=== PATIENT | male | born 1980 | race Caucasian/White ===

== ENCOUNTER 2023-10-15 20:37 | Inpatient (IN) ==
--- NOTE | 2023-10-15 20:51 | Emergency Department Note ---
Impression & Plan Sepsis, Hypomagnesemia, Hypophosphatemia, Hypokalemia, Hypoalbuminemia due to protein-calorie malnutrition, Acute urinary retention, Acute UTI ED Provider Note NAME: VELVET SMITH AGE: 43 SEX: M : 1980 ARRIVES VIA: Ambulance INFORMANT: Patient ED PROVIDER(S): Norberto Cage MD CHIEF COMPLAINT: AMS, fever PLAN: Disposition: Admit MEDICAL DECISION MAKING: The patient is a 43-year-old gentleman presents to the emergency department via EMS and accompanied by his father and a family friend for evaluation of altered mental status where he was found to be febrile and incoherent with inability to ambulate. The patient's symptoms occur in the setting of unclear functional decline over the past year where his father reports that he used to live in [place] independently and had a job at a [employer] but due to his decline moved back home to live with his father last November where he has a pattern where he will sleep and lay in bed all day only periodically getting up to use the bathroom, bathe himself or eat. The patient's father correlates this functional decline to his 's (malini's mother) the year prior. Father reports that he is insisted to the patient that he see a doctor but had declined regularly and so therefore since moving back home in November has not seen a primary care doctor. His father reports that he has had imbalance and recurrent falls throughout this time. His father reports that he found the patient outside today after he had not returned from a walk and found him to be confused unable to speak and unable to walk steadily. Patient's father reports that he was getting up frequently last night to urinate. There is no report of any cough or congestion. The patient is a poor historian and unable to provide significant details of his recent symptoms or history. Patient's father also does not provide accurate details of chronicity, duration or character of symptoms. The patient and father deny any history of alcohol or substance abuse. On arrival to the Emergency Department patient is ill-appearing, febrile to 38.4, tachycardic in the 120s initially normotensive however then developed hypotension in the 80s/40s improving with IV fluid hydration. The patient appears clinically dry. He has dry/cracked mucous membranes. He appears cachectic. He moves all extremities equally with generalized weakness without focal deficits. Reflexes within normal limits. There is no clonus. Negative Kernig's and Brudzinski's sign and the patient reports that this movement provides some relief. WBC 11.1 K with neutrophil predominance but no left shift, nonspecific. Significant lymphopenia is present at 0.27K. H/H without prior for comparison with MCV of 97. Chemistry without metabolic acidosis. Creatinine is normal. Potassium is 3.4, phosphorus 1.4 and magnesium 1.3 with repletion initiated. LFTs are unremarkable. Has to troponin is 5.5, within normal limits. Albumin is low at 2.9 consistent with suspicion for protein calorie malnutrition in the setting of the patient's functional decline over the past year. Procalcitonin is 3.4 consistent with bacterial infection and sepsis. Given patient's lymphopenia and likely exposure to ticks as his [place] treatment empirically for anaplasmosis was initiated with IV doxycycline. Otherwise empiric ceftriaxone ordered for sepsis. Respiratory BioFire was performed and was negative. Anaplasma and Babesia smear were negative with DNA testing pending. Lyme screen is negative. Given patient's critical illness with unreliable history and exam extensive CT imaging obtained. Case was discussed with Dr. Aggarwal, [facility] hospitalist who will evaluate the patient for admission. Subsequently CT imaging interpreted by stat rad. CT of the head without contrast and CT venogram were negative for acute abnormalities and was discussed/confirmed with [facility] radiologist. CT of the face negative for dental infection/abscess or sinusitis. CTA of the chest was negative for PE. Subtle OSMIN groundglass opacities described. CT of the abdomen/pelvis demonstrates distended urinary bladder with circumferential wall thickening and subtle associated inflammatory change consistent with cystitis. There is no hydronephrosis. Upon evaluation the patient was reporting urgency to urinate but was unable and so Hernández catheter was placed and patient had retention of 650 cc of urine. UA subsequently did result and was positive for infection with WBCs, 4+ bacteria and positive nitrites. Admitting team updated. Further management per admitting team. Triage Nursing notes reviewed and agree them. Prior/external medical records reviewed Vital Signs: reviewed Differential diagnosis: Sepsis, UTI, pneumonia, metabolic, electrolyte abnormalities, cardiac sources, intracerebral event, toxicologic, neurologic, as well as other pathologies. ER treatment provided: See below. Diagnostics interpreted by me: ECG: Sinus tachycardia, 116 bpm, no ectopy, no overt ST ovation or depression, QTc 433, QRS 86. Cardiac Monitoring: An order for continuous cardiac monitoring was placed and demonstrated Sinus tachycardia, 116 bpm, no ectopy. Laboratory studies: See below Imaging studies: See below Consultation(s): Case was discussed with Dr. Aggarwal, [facility] hospitalist who will evaluate the patient for admission. HPI: The patient is a 43-year-old gentleman presents to the emergency department via EMS and accompanied by his father and a family friend for evaluation of altered mental status where he was found to be febrile and incoherent with inability to ambulate. The patient's symptoms occur in the setting of unclear functional decline over the past year where his father reports that he used to live in [place] independently and had a job at a [employer] but due to his decline moved back home to live with his father last November where he has a pattern where he will sleep and lay in bed all day only periodically getting up to use the bathroom, bathe himself or eat. The patient's father correlates this functional decline to his 's (pateint's mother) the year prior. Father reports that he is insisted to the patient that he see a doctor but had declined regularly and so therefore since moving back home in November has not seen a primary care doctor. His father reports that he has had imbalance and recurrent falls throughout this time. His father reports that he found the patient outside today after he had not returned from a walk and found him to be confused unable to speak and unable to walk steadily. Patient's father reports that he was getting up frequently last night to urinate. There is no report of any cough or congestion. The patient is a poor historian and unable to provide significant details of his recent symptoms or history. Patient's father also does not provide accurate details of chronicity, duration or character of symptoms. The patient and father deny any history of alcohol or substance abuse. ROS: See above HPI for pertinent positives & negatives. A total of 10 systems reviewed and were otherwise negative. VITALS:See Below PHYSICAL EXAMINATION: GENERAL: Awake, alert, ill-appearing, in no distress HENT: Normocephalic, atraumatic. Oropharynx with dry mucous membranes. Poor dentition. No edema, exudates, tongue elevation or trismus. EYES: Normal conjunctiva. Sclera non-icteric. EOMI. PEARRL. Equivocal bilateral horizontal nystagmus. NECK: Supple. No nuchal rigidity. FROM. No JVD. RESPIRATORY: Clear to auscultation. CARDIAC: Tachycardic rate, normal rhythm. Extremities warm and well perfused. Pulses equal. ABDOMEN: Soft, non-distended. No tenderness to palpation. No rebound or guarding. No masses. MUSCULOSKELETAL: Chest examination reveals no tenderness. The back is symmetrical on inspection without obvious abnormality. There is no CVA tenderness to palpation. No joint edema. LOWER EXTREMITIES: Calves are equal size bilaterally and non-tender. No edema. No discoloration. NEURO: Answers questions appropriately without dysarthria. Appears withdrawn and exhibits poverty of speech. Melancholy appearing. Flat affect. CNII-XII grossly intact. Generalized weakness with 4/5 strength x 4 Ext. Intact finger to nose. DTRs wnl. No clonus. SKIN: No rash or jaundice noted. ED COURSE: Critical Care: I have personally spent greater than 95 minutes of critical care time in the direct management of this patient. This includes bedside care, interpretation of diagnostic studies, and testing, discussion with consultants, patient, and family members, and other required patient management activities. This 95 minutes is in excess of all separately billable procedures. Norberto Cage MD Past Med/Surg History Problem List Acute UTI (Acute) Acute urinary retention (Acute) Hypoalbuminemia due to protein-calorie malnutrition (Acute) Hypokalemia (Acute) Hypophosphatemia (Acute) Hypomagnesemia (Acute) Sepsis (Acute) Social History Smoking Status: Current every day smoker Feels Safe at Home: Yes Allergies Allergies Allergy/AdvReac Type Severity Reaction Status Date / Time No Known Allergies Allergy Unverified 10/16/23 00:27 Home Meds Home Medications Medication Instructions Recorded Confirmed Elderberry Gummy 2 tabs PO DAILY 10/16/23 10/16/23 acetaminophen 500 mg tablet 1,000 mg PO Q6H PRN Fever Or Pain 10/16/23 10/16/23 (Tylenol Extra Strength) milk thistle 150 mg capsule 0 mg PO DAILY 10/16/23 10/16/23 Results & Data (ED) Vital Signs Vital Signs - 24 hr 10/15/23 20:43 10/15/23 20:44 10/15/23 20:46 Temperature Temperature Source Pulse Rate 114 H 117 H Pulse Rate [Apical] Pulse Rate from SpO2 Sensor Pulse Rhythm [Apical] Respiratory Rate 21 Respiratory Effort / Characteristics Respiratory Depth Blood Pressure 116/68 116/68 Blood Pressure [Right Arm] Blood Pressure Mean 84 77 Blood Pressure Mean [Right Arm] Pulse Oximetry 95 Oxygen Delivery Method Room Air Sepsis Recent Fever Within 48 Hours Yes Sepsis New/Unexplained Change in Mental Status Yes Sepsis Action Taken by Nursing Physician Notified 10/15/23 20:46 10/15/23 20:48 10/15/23 20:49 Temperature Temperature Source Pulse Rate 110 H Pulse Rate [Apical] Pulse Rate from SpO2 Sensor 110 H Pulse Rhythm [Apical] Respiratory Rate 26 H Respiratory Effort / Characteristics Respiratory Depth Blood Pressure 116/68 Blood Pressure [Right Arm] Blood Pressure Mean 77 Blood Pressure Mean [Right Arm] Pulse Oximetry 94 Oxygen Delivery Method Room Air Sepsis Recent Fever Within 48 Hours Sepsis New/Unexplained Change in Mental Status Sepsis Action Taken by Nursing 10/15/23 20:49 10/15/23 20:55 10/15/23 20:57 Temperature Temperature Source Pulse Rate 112 H Pulse Rate [Apical] 112 H Pulse Rate from SpO2 Sensor 112 H Pulse Rhythm [Apical] Respiratory Rate 28 H 26 H Respiratory Effort / Characteristics Respiratory Depth Blood Pressure Blood Pressure [Right Arm] 116/68 Blood Pressure Mean Blood Pressure Mean [Right Arm] 84 Pulse Oximetry 95 94 95 Oxygen Delivery Method Room Air Room Air Sepsis Recent Fever Within 48 Hours Sepsis New/Unexplained Change in Mental Status Sepsis Action Taken by Nursing 10/15/23 21:00 10/15/23 21:06 10/15/23 21:27 Temperature Temperature Source Pulse Rate 107 H 105 H Pulse Rate [Apical] Pulse Rate from SpO2 Sensor 108 H 105 H Pulse Rhythm [Apical] Respiratory Rate 24 22 Respiratory Effort / Characteristics Respiratory Depth Blood Pressure 113/68 Blood Pressure [Right Arm] Blood Pressure Mean 78 Blood Pressure Mean [Right Arm] Pulse Oximetry 94 96 Oxygen Delivery Method Sepsis Recent Fever Within 48 Hours Sepsis New/Unexplained Change in Mental Status Sepsis Action Taken by Nursing 10/15/23 21:30 10/15/23 21:33 10/15/23 21:39 Temperature Temperature Source Pulse Rate 103 H 100 H Pulse Rate [Apical] Pulse Rate from SpO2 Sensor 103 H 100 H Pulse Rhythm [Apical] Respiratory Rate 26 H 24 Respiratory Effort / Characteristics Respiratory Depth Blood Pressure 96/54 L Blood Pressure [Right Arm] Blood Pressure Mean 62 Blood Pressure Mean [Right Arm] Pulse Oximetry 95 95 Oxygen Delivery Method Sepsis Recent Fever Within 48 Hours Sepsis New/Unexplained Change in Mental Status Sepsis Action Taken by Nursing 10/15/23 21:44 10/15/23 21:46 10/15/23 21:48 Temperature 38.4 C H Temperature Source Oral Pulse Rate Pulse Rate [Apical] 103 H Pulse Rate from SpO2 Sensor Pulse Rhythm [Apical] Respiratory Rate 22 Respiratory Effort / Characteristics Respiratory Depth Blood Pressure 85/69 L 88/48 L Blood Pressure [Right Arm] 88/48 L Blood Pressure Mean 71 58 Blood Pressure Mean [Right Arm] 61 Pulse Oximetry 97 Oxygen Delivery Method Room Air Sepsis Recent Fever Within 48 Hours Sepsis New/Unexplained Change in Mental Status Sepsis Action Taken by Nursing 10/15/23 21:48 10/15/23 22:01 10/15/23 22:01 Temperature Temperature Source Pulse Rate 101 H Pulse Rate [Apical] Pulse Rate from SpO2 Sensor 102 H Pulse Rhythm [Apical] Respiratory Rate 21 Respiratory Effort / Characteristics Respiratory Depth Blood Pressure 86/44 L 86/44 L Blood Pressure [Right Arm] Blood Pressure Mean 56 56 Blood Pressure Mean [Right Arm] Pulse Oximetry 96 Oxygen Delivery Method Sepsis Recent Fever Within 48 Hours Sepsis New/Unexplained Change in Mental Status Sepsis Action Taken by Nursing 10/15/23 22:01 10/15/23 22:03 10/15/23 22:16 Temperature Temperature Source Pulse Rate 100 H Pulse Rate [Apical] Pulse Rate from SpO2 Sensor 100 H Pulse Rhythm [Apical] Respiratory Rate 19 Respiratory Effort / Characteristics Respiratory Depth Blood Pressure 86/44 L 82/46 L Blood Pressure [Right Arm] Blood Pressure Mean 56 53 Blood Pressure Mean [Right Arm] Pulse Oximetry 97 Oxygen Delivery Method Sepsis Recent Fever Within 48 Hours Sepsis New/Unexplained Change in Mental Status Sepsis Action Taken by Nursing 10/15/23 22:16 10/15/23 22:30 10/15/23 22:33 Temperature Temperature Source Pulse Rate 97 H Pulse Rate [Apical] Pulse Rate from SpO2 Sensor 97 H Pulse Rhythm [Apical] Respiratory Rate 21 Respiratory Effort / Characteristics Respiratory Depth Blood Pressure 82/46 L 81/47 L Blood Pressure [Right Arm] Blood Pressure Mean 53 51 Blood Pressure Mean [Right Arm] Pulse Oximetry 96 Oxygen Delivery Method Sepsis Recent Fever Within 48 Hours Sepsis New/Unexplained Change in Mental Status Sepsis Action Taken by Nursing 10/15/23 22:39 10/15/23 22:45 10/15/23 22:45 Temperature Temperature Source Pulse Rate 96 H Pulse Rate [Apical] Pulse Rate from SpO2 Sensor 97 H Pulse Rhythm [Apical] Respiratory Rate 21 Respiratory Effort / Characteristics Respiratory Depth Blood Pressure 81/50 L 81/50 L Blood Pressure [Right Arm] Blood Pressure Mean 66 66 Blood Pressure Mean [Right Arm] Pulse Oximetry 96 Oxygen Delivery Method Sepsis Recent Fever Within 48 Hours Sepsis New/Unexplained Change in Mental Status Sepsis Action Taken by Nursing 10/15/23 22:48 10/15/23 23:00 10/15/23 23:36 Temperature Temperature Source Pulse Rate 94 H Pulse Rate [Apical] 94 H Pulse Rate from SpO2 Sensor 94 H Pulse Rhythm [Apical] Regular Respiratory Rate 22 21 Respiratory Effort / Characteristics Non-Labored Respiratory Depth Normal Blood Pressure 86/50 L Blood Pressure [Right Arm] 81/50 L Blood Pressure Mean 63 Blood Pressure Mean [Right Arm] 60 Pulse Oximetry 95 98 Oxygen Delivery Method Room Air Sepsis Recent Fever Within 48 Hours Sepsis New/Unexplained Change in Mental Status Sepsis Action Taken by Nursing 10/16/23 00:08 10/16/23 01:03 Temperature 37.4 C Temperature Source Oral Pulse Rate 88 Pulse Rate [Apical] 101 H Pulse Rate from SpO2 Sensor Pulse Rhythm [Apical] Respiratory Rate 25 H Respiratory Effort / Characteristics Non-Labored Spontaneous Respiratory Depth Normal Blood Pressure Blood Pressure [Right Arm] 89/57 L Blood Pressure Mean Blood Pressure Mean [Right Arm] 67 Pulse Oximetry 98 Oxygen Delivery Method Room Air Sepsis Recent Fever Within 48 Hours Sepsis New/Unexplained Change in Mental Status Sepsis Action Taken by Nursing Laboratory Data Attestation: I reviewed the patient's lab results. 10/15/23 20:55 10/15/23 20:55 Lab Results 10/15/23 10/15/23 10/16/23 Range/Units 20:55 23:45 00:10 WBC 11.10 H (4.8-10.8) K/ul RBC 3.39 L (4.70-6.10) M/uL Hgb 11.0 L (14.0-18.0) g/dl Hct 33.0 L (42.0-52.0) % MCV 97.3 (80.0-100.0) fL MCH 32.4 (25.0-34.0) pg MCHC 33.3 (32.0-36.0) g/dL RDW Std Deviation 42.8 (36.4-46.3) fL RDW Coeff of Luis 11.9 (11.5-14.5) % Plt Count 139 (130-400) K/uL MPV 10.0 (9.4-12.4) fL Immature Gran % (Auto) 0.7 % Neut % (Auto) 95.5 % Lymph % (Auto) 2.4 % Tripp % (Auto) 1.0 % Eos % (Auto) 0.3 % Baso % (Auto) 0.1 % Neut # (Auto) 10.60 H (1.40-6.50) K/uL Lymph # (Auto) 0.27 L (1.20-3.40) K/uL Tripp # (Auto) 0.11 (0.11-0.59) K/uL Eos # (Auto) 0.03 (0.00-0.50) K/uL Baso # (Auto) 0.01 (0.00-0.20) K/uL Immature Gran # (Auto) 0.08 (0.01-0.20) K/uL Sodium 136 (136-145) mmol/L Potassium 3.4 L (3.5-5.1) mmol/L Chloride 105 (98-107) mmol/L Carbon Dioxide 23 (21-32) mmol/L Anion Gap 8 (3-11) BUN 16 (6-23) mg/dl Creatinine 0.92 (0.6-1.4) mg/dl Est Cr Clr Drug Dosing 113.9 ml/min Est GFR ( Amer) 117.6 ml/min Est GFR (Non-Af Amer) 101.5 ml/min BUN/Creatinine Ratio 17.4 (10-20) Glucose 104 H (70-99(Fasting)) mg/dl Osmolality 285 (280-300) mOsm/kg Lactate 1.2 (0.4-2.0) mmol/L Calcium 8.3 L (8.6-10.3) mg/dl Phosphorus 1.4 L* (2.5-4.9) mg/dl Magnesium 1.3 L (1.7-2.4) mg/dl Total Bilirubin 0.5 (0.2-1.0) mg/dl Direct Bilirubin 0.2 (0-0.2) mg/dl AST 23 (13-39) U/L ALT 35 (7-52) U/L Alkaline Phosphatase 53 (34-104) U/L Total Creatine Kinase 51 (30-223) U/L Troponin I High Sens 5.5 (0-20) pg/ml Total Protein 8.0 (6.0-8.3) gm/dl Albumin 2.9 L (3.4-5.0) gm/dl Lipase 20 (11-82) U/L Procalcitonin 3.45 H (0-0.5) ng/ml Urine Color Urine Appearance (Clear) Urine pH (4.5-7.5) Ur Specific [place] (1.000-1.030) Urine Protein (Negative) Urine Glucose (UA) (Negative) Urine Ketones (Negative) Urine Blood (Negative) Urine Nitrite (Negative) Urine Bilirubin (Negative) Urine Urobilinogen (Negative) Ur Leukocyte Esterase (Negative) Urine WBC (Auto) (0-5) /hpf Urine RBC (Auto) (0-2) /hpf U Hyaline Cast (Auto) (0-2) /lpf U Epithel Cells (Auto) (0-2) /hpf Urine Bacteria (Auto) (None Seen) Nasal Screen MRSA (PCR) Negative (Negative) Adenovirus (PCR) Not Detected (NotDetected) Anaplasma Smear See Comment Babesia Smear See Comment B. pertussis DNA (PCR) Not Detected (NotDetected) B.parapertussis DNA PCR Not Detected (NotDetected) Lyme Disease Screen Negative (Negative) C. pneumoniae DNA (PCR) Not Detected (NotDetected) Coronavirus OC43 (PCR) Not Detected (NotDetected) Coronavirus HKU1 (PCR) Not Detected (NotDetected) Coronavirus 229E (PCR) Not Detected (NotDetected) SARS-CoV-2 (PCR) Not Detected (NotDetected) Coronavirus NL63 (PCR) Not Detected (NotDetected) Human Metapneumovir PCR Not Detected (NotDetected) Influenza Type A (PCR) Not Detected (NotDetected) Influenza Type B (PCR) Not Detected (NotDetected) M. pneumoniae (PCR) Not Detected (NotDetected) Parainfluenza 1 (PCR) Not Detected (NotDetected) Parainfluenza 2 (PCR) Not Detected (NotDetected) Parainfluenza 3 (PCR) Not Detected (NotDetected) Parainfluenza 4 (PCR) Not Detected (NotDetected) RSV (PCR) Not Detected (NotDetected) Entero/Rhino (PCR) Not Detected (NotDetected) 10/16/23 Range/Units 00:57 WBC (4.8-10.8) K/ul RBC (4.70-6.10) M/uL Hgb (14.0-18.0) g/dl Hct (42.0-52.0) % MCV (80.0-100.0) fL MCH (25.0-34.0) pg MCHC (32.0-36.0) g/dL RDW Std Deviation (36.4-46.3) fL RDW Coeff of Luis (11.5-14.5) % Plt Count (130-400) K/uL MPV (9.4-12.4) fL Immature Gran % (Auto) % Neut % (Auto) % Lymph % (Auto) % Tripp % (Auto) % Eos % (Auto) % Baso % (Auto) % Neut # (Auto) (1.40-6.50) K/uL Lymph # (Auto) (1.20-3.40) K/uL Tripp # (Auto) (0.11-0.59) K/uL Eos # (Auto) (0.00-0.50) K/uL Baso # (Auto) (0.00-0.20) K/uL Immature Gran # (Auto) (0.01-0.20) K/uL Sodium (136-145) mmol/L Potassium (3.5-5.1) mmol/L Chloride (98-107) mmol/L Carbon Dioxide (21-32) mmol/L Anion Gap (3-11) BUN (6-23) mg/dl Creatinine (0.6-1.4) mg/dl Est Cr Clr Drug Dosing ml/min Est GFR ( Amer) ml/min Est GFR (Non-Af Amer) ml/min BUN/Creatinine Ratio (10-20) Glucose (70-99(Fasting)) mg/dl Osmolality (280-300) mOsm/kg Lactate (0.4-2.0) mmol/L Calcium (8.6-10.3) mg/dl Phosphorus (2.5-4.9) mg/dl Magnesium (1.7-2.4) mg/dl Total Bilirubin (0.2-1.0) mg/dl Direct Bilirubin (0-0.2) mg/dl AST (13-39) U/L ALT (7-52) U/L Alkaline Phosphatase (34-104) U/L Total Creatine Kinase (30-223) U/L Troponin I High Sens (0-20) pg/ml Total Protein (6.0-8.3) gm/dl Albumin (3.4-5.0) gm/dl Lipase (11-82) U/L Procalcitonin (0-0.5) ng/ml Urine Color Yellow Urine Appearance Cloudy A (Clear) Urine pH 7.5 (4.5-7.5) Ur Specific [place] 1.021 (1.000-1.030) Urine Protein 1+ H (Negative) Urine Glucose (UA) Negative (Negative) Urine Ketones Negative (Negative) Urine Blood 2+ H (Negative) Urine Nitrite Positive A (Negative) Urine Bilirubin Negative (Negative) Urine Urobilinogen Negative (Negative) Ur Leukocyte Esterase 3+ H (Negative) Urine WBC (Auto) >50 H (0-5) /hpf Urine RBC (Auto) 11-20 H (0-2) /hpf U Hyaline Cast (Auto) 0-2 (0-2) /lpf U Epithel Cells (Auto) 0-2 (0-2) /hpf Urine Bacteria (Auto) 4+ H (None Seen) Nasal Screen MRSA (PCR) (Negative) Adenovirus (PCR) (NotDetected) Anaplasma Smear Babesia Smear B. pertussis DNA (PCR) (NotDetected) B.parapertussis DNA PCR (NotDetected) Lyme Disease Screen (Negative) C. pneumoniae DNA (PCR) (NotDetected) Coronavirus OC43 (PCR) (NotDetected) Coronavirus HKU1 (PCR) (NotDetected) Coronavirus 229E (PCR) (NotDetected) SARS-CoV-2 (PCR) (NotDetected) Coronavirus NL63 (PCR) (NotDetected) Human Metapneumovir PCR (NotDetected) Influenza Type A (PCR) (NotDetected) Influenza Type B (PCR) (NotDetected) M. pneumoniae (PCR) (NotDetected) Parainfluenza 1 (PCR) (NotDetected) Parainfluenza 2 (PCR) (NotDetected) Parainfluenza 3 (PCR) (NotDetected) Parainfluenza 4 (PCR) (NotDetected) RSV (PCR) (NotDetected) Entero/Rhino (PCR) (NotDetected) Administered Medications Potassium Phosphate 15 mmol/ (Sodium Chloride) 255 mls @ 88 mls/hr IV ONE STA Stop: 10/16/23 02:58 Last Admin: 10/16/23 00:50 Dose: 88 mls/hr Documented By: ROSANNA Magnesium Sulfate/Dextrose (Magnesium Sulfate / D5w) 1 gm in 100 mls @ 50 mls/hr IV ONE STA Stop: 10/16/23 03:11 Last Admin: 10/16/23 01:39 Dose: 50 mls/hr Documented By: ROSANNA Discontinued Medications Acetaminophen (Ofirmev) 1,000 mg in 100 mls @ 400 mls/hr IV NOW STA Stop: 10/15/23 21:03 Last Infusion: 10/15/23 21:16 Dose: Infused Documented By: Admin: 10/15/23 21:00 Dose: 400 mls/hr Documented By: ROSANNA Sodium Chloride (Nss) 1,000 mls @ 999 mls/hr IV .Q1H1M JEREL Stop: 10/15/23 23:00 Last Infusion: 10/15/23 22:39 Dose: Infused Documented By: Admin: 10/15/23 21:32 Dose: 999 mls/hr Documented By: Infusion: 10/15/23 21:32 Dose: Infused Documented By: Admin: 10/15/23 21:00 Dose: 999 mls/hr Documented By: ROSANNA Ceftriaxone Sodium (Rocephin) 2,000 mg in 50 mls @ 100 mls/hr IV NOW STA Stop: 10/15/23 22:52 Last Infusion: 10/15/23 23:03 Dose: Infused Documented By: Admin: 10/15/23 22:33 Dose: 100 mls/hr Documented By: ROSANNA Magnesium Sulfate/Dextrose (Magnesium Sulfate / D5w) 1 gm in 100 mls @ 200 mls/hr IV Q30M JEREL Stop: 10/15/23 23:24 Last Infusion: 10/16/23 00:35 Dose: Infused Documented By: Admin: 10/15/23 23:54 Dose: 200 mls/hr Documented By: Infusion: 10/15/23 23:54 Dose: Infused Documented By: Admin: 10/15/23 23:16 Dose: 200 mls/hr Documented By: ROSANNA Sodium Chloride (Nss) 1,000 mls @ 999 mls/hr IV .Q1H1M ONE Stop: 10/15/23 23:27 Last Infusion: 10/16/23 00:07 Dose: Infused Documented By: Admin: 10/15/23 23:41 Dose: 999 mls/hr Documented By: ROSANNA Thiamine HCl 200 mg/ Sodium (Chloride) 52 mls @ 210 mls/hr IV NOW STA Stop: 10/15/23 22:41 Last Infusion: 10/15/23 23:41 Dose: Infused Documented By: Admin: 10/15/23 23:16 Dose: 210 mls/hr Documented By: ROSANNA Doxycycline Hyclate 100 mg/ (Dextrose) 100 mls @ 50 mls/hr IV NOW STA Stop: 10/16/23 01:36 Last Admin: 10/16/23 00:06 Dose: 50 mls/hr Documented By: ROSANNA Sodium Chloride (Nss) 1,000 mls @ 999 mls/hr IV .Q1H1M ONE Stop: 10/16/23 01:51 Last Admin: 10/16/23 01:02 Dose: Not Given Documented By: ROSANNA Lactated Ringer's (Lr) 1,000 mls @ 999 mls/hr IV .Q1H1M ONE Stop: 10/16/23 01:59 Last Infusion: 10/16/23 01:41 Dose: Infused Documented By: Admin: 10/16/23 01:07 Dose: 999 mls/hr Documented By: ROSANNA Ioversol (Optiray 320 125ml) 119 ml IV ONCE ONE Stop: 10/15/23 23:11 Last Admin: 10/15/23 23:10 Dose: 119 ml Documented By: TITO Potassium Chloride (Potassium Chloride Pwd 20 Meq Pack) 40 meq PO NOW STA Stop: 10/16/23 01:05 Last Admin: 10/16/23 01:38 Dose: 40 meq Documented By: ROSANNA Imaging Data Radiologist's Impression: Abdomen/Pelvis CT 10/15/23 22:25 Exam(s): CT ABDOMEN + PELVIS With Contrast IV Amt: 119 ml optiray 320 EXAM: CT Abdomen and Pelvis With Intravenous Contrast CLINICAL HISTORY: Reason for exam: sepsis, ?UTI. TECHNIQUE: Axial computed tomography images of the abdomen and pelvis with intravenous contrast. CTDI is 54.68 mGy and DLP is 2174.08 mGy-cm. Automated exposure control was utilized for the study. A dose lowering technique was utilized adhering to the principles of ALARA. CONTRAST: Patient received 119 ml optiray 320 of IV contrast COMPARISON: No relevant prior studies available. FINDINGS: Lung bases: Unremarkable. No mass. No consolidation. ABDOMEN: Liver: Hepatomegaly. Gallbladder and bile ducts: Unremarkable. No calcified stones. No ductal dilation. Pancreas: Unremarkable. No mass. No ductal dilation. Spleen: Unremarkable. No splenomegaly. Adrenals: Unremarkable. No mass. Kidneys and ureters: Nonobstructing left intrarenal calculus. Stomach and bowel: Large amount stool within the colon. No mucosal thickening. PELVIS: Appendix: No findings to suggest acute appendicitis. Bladder: Distended urinary bladder. Mild circumferential wall thickening and associated inflammatory change. Reproductive: Unremarkable as visualized. ABDOMEN and PELVIS: Intraperitoneal space: Unremarkable. No free air. No significant fluid collection. Bones/joints: Grade 1 anterolisthesis of L5 on S1. No acute fracture. No dislocation. Soft tissues: Unremarkable. Vasculature: Unremarkable. No abdominal aortic aneurysm. Lymph nodes: Unremarkable. No enlarged lymph nodes. IMPRESSION: Distended urinary bladder with mild circumferential wall thickening and subtle associated inflammatory change. Findings may represent cystitis in the appropriate clinical setting. Electronically signed by: Tiago Boston MD 10/16/23 00:35 AM Chest CTA 10/15/23 22:25 Exam(s): CTA CHEST IV Amt: 119 ml optiray 320 EXAM: CT Angiography Chest With Intravenous Contrast CLINICAL HISTORY: Reason for exam: tachycardia, hypoxia, r/o PE. TECHNIQUE: Axial computed tomographic angiography images of the chest with intravenous contrast. CTDI is 54.68 mGy and DLP is 2174.08 mGy-cm. Automated exposure control was utilized for the study. A dose lowering technique was utilized adhering to the principles of ALARA. MIP reconstructed images were created and reviewed. COMPARISON: No relevant prior studies available. FINDINGS: Limitations: Exam slightly limited secondary to patient respiratory motion. Pulmonary arteries: Unremarkable. No pulmonary embolism. Aorta: No acute findings. No thoracic aortic aneurysm. Lungs: Subtle groundglass opacity within the left upper lobe. Pleural space: Unremarkable. No significant effusion. No pneumothorax. Heart: Unremarkable. No cardiomegaly. No significant pericardial effusion. No evidence of RV dysfunction. Bones/joints: No acute fracture. No dislocation. Soft tissues: Unremarkable. Lymph nodes: Unremarkable. No enlarged lymph nodes. IMPRESSION: No acute findings in the visualized arteries of the chest. Left upper lobe pneumonia Electronically signed by: Tiago Boston MD 10/16/23 01:[address] 10/15/23 22:25 Exam(s): CT HEAD Without Contrast EXAM: CT Head Without Intravenous Contrast CLINICAL HISTORY: Reason for exam: ams fever. TECHNIQUE: Axial computed tomography images of the head/brain without intravenous contrast. CTDI is 35.79 mGy and DLP is 624.41 mGy-cm. Automated exposure control was utilized for the study. A dose lowering technique was utilized adhering to the principles of ALARA. COMPARISON: No relevant prior studies available. FINDINGS: Brain: Unremarkable. No hemorrhage. No significant white matter disease. No edema. Ventricles: Unremarkable. No ventriculomegaly. Bones/joints: Unremarkable. No acute fracture. Soft tissues: Unremarkable. Sinuses: Unremarkable as visualized. No acute sinusitis. Mastoid air cells: Unremarkable as visualized. No mastoid effusion. IMPRESSION: Normal head/brain CT. Electronically signed by: Tiago Boston MD 10/16/23 00:[address] 10/15/23 22:25 Exam(s): CT VENOGRAPHY IV Amt: 119 ml optiray 320 EXAM: CT Head With Intravenous Contrast CLINICAL HISTORY: Reason for exam: ams, fever. TECHNIQUE: Axial computed tomography images of the head/brain with intravenous contrast. CTDI is 35.79 mGy and DLP is 624.41 mGy-cm. Automated exposure control was utilized for the study. A dose lowering technique was utilized adhering to the principles of ALARA. CONTRAST: Patient received 119 ml optiray 320 of IV contrast COMPARISON: No relevant prior studies available. FINDINGS: Brain: Unremarkable. No hemorrhage. No edema. Normal enhancement. Ventricles: Unremarkable. No ventriculomegaly. Bones/joints: Unremarkable. No acute fracture. Soft tissues: Unremarkable. Sinuses: Unremarkable as visualized. No acute sinusitis. Mastoid air cells: Unremarkable as visualized. No mastoid effusion. Vascular structures: Unremarkable IMPRESSION: Normal head/brain CT. Electronically signed by: Tiago Boston MD 10/16/23 01:[address] 10/15/23 22:30 Exam(s): CT FACIAL With Contrast IV Amt: 119 ml optiray 320 EXAM: CT Maxillofacial With Intravenous Contrast CLINICAL HISTORY: Reason for exam: sepsis, dental caries. TECHNIQUE: Axial computed tomography images of the face with intravenous contrast. CTDI is 21.37 mGy and DLP is 10.69 mGy-cm. Automated exposure control was utilized for the study. A dose lowering technique was utilized adhering to the principles of ALARA. CONTRAST: Patient received 119 ml optiray 320 of IV contrast COMPARISON: No relevant prior studies available. FINDINGS: Bones/joints: No acute fracture. Soft tissues: Unremarkable. No rim-enhancing fluid collection to suggest abscess. Orbits: Unremarkable. Sinuses: . No air-fluid levels. IMPRESSION: Normal maxillofacial CT. Electronically signed by: Tiago Boston MD 10/16/23 01:40 AM Discharge Plan Visit Data Chief Complaint: Syncope Stated Complaint: Syncope, AMS ED Provider: Norberto Cage Discharge Problem: Sepsis, Hypomagnesemia, Hypophosphatemia, Hypokalemia, Hypoalbuminemia due to protein-calorie malnutrition, Acute urinary retention, Acute UTI Discharge Instructions Interventions: ED Discharge Assessment Last Done: 10/16/23 02:05 Discharge Problem: Sepsis Qualifiers: Sepsis type: sepsis due to unspecified organism Sepsis acute organ dysfunction status: with acute organ dysfunction Severe sepsis acute organ dysfunction type: encephalopathy Severe sepsis shock status: unspecified Qualified Code(s): A41.9 - Sepsis, unspecified organism
[2023-10-15] MEDS: ACETAMINOPHEN 1,000 MG/100 ML VIAL IV STA (21:00)
[2023-10-15] MEDS: SODIUM CHLORIDE 0.9% 1,000 ML IV SCH (21:00)
[2023-10-15 21:24] LABS: Mean Corpuscular Hemoglobin 32.4 pg (25.0-34.0); Mean Corpuscular Hgb Conc 33.3 g/dL (32.0-36.0); Mean Corpuscular Volume 97.3 fL (80.0-100.0); Platelet Count 139 K/uL (130-400); RDW Coefficient of Variation 11.9 % (11.5-14.5); RDW Standard Deviation 42.8 fL (36.4-46.3); Red Blood Count 3.39 M/uL (4.70-6.10)
[2023-10-15 21:38] LABS: Basophils # (auto) 0.01 K/uL (0.00-0.20); Basophils % (auto) 0.1 %; Eosinophils # (auto) 0.03 K/uL (0.00-0.50); Eosinophils % (auto) 0.3 %; Immature Granulocytes # (auto) 0.08 K/uL (0.01-0.20); Immature Granulocytes % (auto) 0.7 %; Lymphocytes # (auto) 0.27 K/uL (1.20-3.40); Lymphocytes % (auto) 2.4 %; Monocytes # (auto) 0.11 K/uL (0.11-0.59); Neutrophils % (auto) 95.5 %
[2023-10-15 21:43] LABS: Troponin I High Sensitivity 5.5 pg/ml (0-20)
[2023-10-15 21:56] LABS: Albumin Level 2.9 gm/dl (3.4-5.0); BUN Creatinine Ratio 17.4 (10-20); Bilirubin Direct 0.2 mg/dl (0-0.2); Bilirubin,Total 0.5 mg/dl (0.2-1.0); Calcium 8.3 mg/dl (8.6-10.3); Creatinine Clr Calc Pharmacy 113.9 ml/min; Est GFR (African American) 117.6 ml/min; Est GFR (Non-African American) 101.5 ml/min; Magnesium 1.3 mg/dl (1.7-2.4); Potassium 3.4 mmol/L (3.5-5.1)
[2023-10-15 22:07] LABS: Adenovirus PCR Not Detected (NotDetected); Bordetella parapertussis PCR Not Detected (NotDetected); Bordetella pertussis PCR Not Detected (NotDetected); Chlamydia pneumoniae PCR Not Detected (NotDetected); Coronavirus 229E PCR Not Detected (NotDetected); Coronavirus CoV-2 (COVID19)PCR Not Detected (NotDetected); Coronavirus HKU1 PCR Not Detected (NotDetected); Coronavirus NL63 PCR Not Detected (NotDetected); Coronavirus OC43PCR Not Detected (NotDetected); Human Metapneumovirus PCR Not Detected (NotDetected); Influenza A PCR Not Detected (NotDetected); Influenza B PCR Not Detected (NotDetected); Mycoplasma pneumoniae PCR Not Detected (NotDetected); Parainfluenza Virus 1 PCR Not Detected (NotDetected); Parainfluenza Virus 2 PCR Not Detected (NotDetected); Parainfluenza Virus 3 PCR Not Detected (NotDetected); Parainfluenza Virus 4 PCR Not Detected (NotDetected); Respiratory Syncytial VirusPCR Not Detected (NotDetected); Rhinovirus/Enterovirus PCR Not Detected (NotDetected)
[2023-10-15] MEDS: cefTRIAXone SODIUM 2,000 MG/50 ML BAG IV STA (22:33)
[2023-10-15 23:05] LABS: Phosphorus 1.4 mg/dl (2.5-4.9)
[2023-10-15] MEDS: OPTIRAY 320 125ml IV ONE (23:10)
[2023-10-15] MEDS: MAGNESIUM SULFATE / D5W 1 GM/100 ML BAG IV SCH (23:16)
[2023-10-15] MEDS: THIAMINE HCL 200 MG in SODIUM CHLORIDE 0.9% 50 ML IV STA (23:16)
[2023-10-15] MEDS ORDERED: POTASSIUM PHOS 3 MMOL/1 ML INFUSION IV STA (23:37)
[2023-10-15] MEDS: SODIUM CHLORIDE 0.9% 1,000 ML IV ONE (23:41)
[2023-10-16] MEDS: DOXYCYCLINE HYCLATE 100 MG in DEXTROSE 5% MINI-B 100 ML IV STA (00:06)
--- NOTE | 2023-10-16 00:15 | CT Scan Report ---
Exam(s): CT HEAD Without Contrast EXAM: CT Head Without Intravenous Contrast CLINICAL HISTORY: Reason for exam: ams fever. TECHNIQUE: Axial computed tomography images of the head/brain without intravenous contrast. CTDI is 35.79 mGy and DLP is 624.41 mGy-cm. Automated exposure control was utilized for the study. A dose lowering technique was utilized adhering to the principles of ALARA. COMPARISON: No relevant prior studies available. FINDINGS: Brain: Unremarkable. No hemorrhage. No significant white matter disease. No edema. Ventricles: Unremarkable. No ventriculomegaly. Bones/joints: Unremarkable. No acute fracture. Soft tissues: Unremarkable. Sinuses: Unremarkable as visualized. No acute sinusitis. Mastoid air cells: Unremarkable as visualized. No mastoid effusion. IMPRESSION: Normal head/brain CT. Electronically signed by: Tiago Boston MD 10/16/23 00:14 AM
--- NOTE | 2023-10-16 00:36 | CT Scan Report ---
Exam(s): CT ABDOMEN + PELVIS With Contrast IV Amt: 119 ml optiray 320 EXAM: CT Abdomen and Pelvis With Intravenous Contrast CLINICAL HISTORY: Reason for exam: sepsis, ?UTI. TECHNIQUE: Axial computed tomography images of the abdomen and pelvis with intravenous contrast. CTDI is 54.68 mGy and DLP is 2174.08 mGy-cm. Automated exposure control was utilized for the study. A dose lowering technique was utilized adhering to the principles of ALARA. CONTRAST: Patient received 119 ml optiray 320 of IV contrast COMPARISON: No relevant prior studies available. FINDINGS: Lung bases: Unremarkable. No mass. No consolidation. ABDOMEN: Liver: Hepatomegaly. Gallbladder and bile ducts: Unremarkable. No calcified stones. No ductal dilation. Pancreas: Unremarkable. No mass. No ductal dilation. Spleen: Unremarkable. No splenomegaly. Adrenals: Unremarkable. No mass. Kidneys and ureters: Nonobstructing left intrarenal calculus. Stomach and bowel: Large amount stool within the colon. No mucosal thickening. PELVIS: Appendix: No findings to suggest acute appendicitis. Bladder: Distended urinary bladder. Mild circumferential wall thickening and associated inflammatory change. Reproductive: Unremarkable as visualized. ABDOMEN and PELVIS: Intraperitoneal space: Unremarkable. No free air. No significant fluid collection. Bones/joints: Grade 1 anterolisthesis of L5 on S1. No acute fracture. No dislocation. Soft tissues: Unremarkable. Vasculature: Unremarkable. No abdominal aortic aneurysm. Lymph nodes: Unremarkable. No enlarged lymph nodes. IMPRESSION: Distended urinary bladder with mild circumferential wall thickening and subtle associated inflammatory change. Findings may represent cystitis in the appropriate clinical setting. Electronically signed by: Tiago Boston MD 10/16/23 00:35 AM
[2023-10-16] MEDS: POTASSIUM PHOSPHATE 15 MMOL in SODIUM CHLORIDE 0.9% 250 ML IV STA (00:50)
[2023-10-16] MEDS: SODIUM CHLORIDE 0.9% 1,000 ML IV ONE (01:02)
[2023-10-16] MEDS: LACTATED RINGER'S 1,000 ML IV ONE (01:07)
[2023-10-16 01:10] LABS: Appearance Urine Cloudy (Clear); Bacteria Urine Automated 4+ (None Seen); Bilirubin Urine Negative (Negative); Blood Urine 2+ (Negative); Cast Urine Automated 0-2 /lpf (0-2); Color Urine Yellow; Epithelial Cell Urine Auto 0-2 /hpf (0-2); Glucose Urine UA Negative (Negative); Ketones Urine Negative (Negative); Leukocyte Esterase Urine 3+ (Negative); Nitrite Urine Positive (Negative); Protein Urine 1+ (Negative); Specific Gravity Urine 1.021 (1.000-1.030); Urobilinogen Urine Negative (Negative); WBC Urine Automated >50 /hpf (0-5); pH Urine 7.5 (4.5-7.5)
--- NOTE | 2023-10-16 01:25 | CT Scan Report ---
Exam(s): CTA CHEST IV Amt: 119 ml optiray 320 EXAM: CT Angiography Chest With Intravenous Contrast CLINICAL HISTORY: Reason for exam: tachycardia, hypoxia, r/o PE. TECHNIQUE: Axial computed tomographic angiography images of the chest with intravenous contrast. CTDI is 54.68 mGy and DLP is 2174.08 mGy-cm. Automated exposure control was utilized for the study. A dose lowering technique was utilized adhering to the principles of ALARA. MIP reconstructed images were created and reviewed. COMPARISON: No relevant prior studies available. FINDINGS: Limitations: Exam slightly limited secondary to patient respiratory motion. Pulmonary arteries: Unremarkable. No pulmonary embolism. Aorta: No acute findings. No thoracic aortic aneurysm. Lungs: Subtle groundglass opacity within the left upper lobe. Pleural space: Unremarkable. No significant effusion. No pneumothorax. Heart: Unremarkable. No cardiomegaly. No significant pericardial effusion. No evidence of RV dysfunction. Bones/joints: No acute fracture. No dislocation. Soft tissues: Unremarkable. Lymph nodes: Unremarkable. No enlarged lymph nodes. IMPRESSION: No acute findings in the visualized arteries of the chest. Left upper lobe pneumonia Electronically signed by: Tiago Boston MD 10/16/23 01:24 AM
[2023-10-16] MEDS: POTASSIUM CHLORIDE PWD 20 MEQ PACK PO STA (01:38)
[2023-10-16] MEDS: MAGNESIUM SULFATE / D5W 1 GM/100 ML BAG IV STA (01:39)
--- NOTE | 2023-10-16 01:40 | CT Scan Report ---
Exam(s): CT FACIAL With Contrast IV Amt: 119 ml optiray 320 EXAM: CT Maxillofacial With Intravenous Contrast CLINICAL HISTORY: Reason for exam: sepsis, dental caries. TECHNIQUE: Axial computed tomography images of the face with intravenous contrast. CTDI is 21.37 mGy and DLP is 10.69 mGy-cm. Automated exposure control was utilized for the study. A dose lowering technique was utilized adhering to the principles of ALARA. CONTRAST: Patient received 119 ml optiray 320 of IV contrast COMPARISON: No relevant prior studies available. FINDINGS: Bones/joints: No acute fracture. Soft tissues: Unremarkable. No rim-enhancing fluid collection to suggest abscess. Orbits: Unremarkable. Sinuses: . No air-fluid levels. IMPRESSION: Normal maxillofacial CT. Electronically signed by: Tiago Boston MD 10/16/23 01:40 AM
--- NOTE | 2023-10-16 01:42 | CT Scan Report ---
Exam(s): CT VENOGRAPHY IV Amt: 119 ml optiray 320 EXAM: CT Head With Intravenous Contrast CLINICAL HISTORY: Reason for exam: ams, fever. TECHNIQUE: Axial computed tomography images of the head/brain with intravenous contrast. CTDI is 35.79 mGy and DLP is 624.41 mGy-cm. Automated exposure control was utilized for the study. A dose lowering technique was utilized adhering to the principles of ALARA. CONTRAST: Patient received 119 ml optiray 320 of IV contrast COMPARISON: No relevant prior studies available. FINDINGS: Brain: Unremarkable. No hemorrhage. No edema. Normal enhancement. Ventricles: Unremarkable. No ventriculomegaly. Bones/joints: Unremarkable. No acute fracture. Soft tissues: Unremarkable. Sinuses: Unremarkable as visualized. No acute sinusitis. Mastoid air cells: Unremarkable as visualized. No mastoid effusion. Vascular structures: Unremarkable IMPRESSION: Normal head/brain CT. Electronically signed by: Tiago Boston MD 10/16/23 01:42 AM
--- NOTE | 2023-10-16 01:46 | History & Physical Report ---
Date of Service October 16, 2023 Assessment & Plan (1) Hypotension: Plan: Secondary to hypovolemia secondary to sepsis from complicated UTI Encephalopathy secondary to illness, mentation much improved after initial intervention at the ER as per family. Hypokalemia, hypomagnesemia secondary to illness New onset anemia, intermittent hemorrhoidal bleed as per patient/family Ambulatory dysfunction since last year ongoing tobacco abuse PCU given hypotension IVF CS, Cefepime Replace electrolytes Anemia workup Nicotine replacement therapy as needed PT OT eval once medically stable DVT prophylaxis. SCDs RE intermittent hemorrhoidal bleed causing anemia Full code Patient father requesting updates providers. Mr. Avtar Ambrocio, contact #[phone]. Text document was generated using [employer] voice recognition software. It may contain grammatical or spelling errors. Kindly contact undersigned for clarification of any documentation item in question. History of Present Illness Chief Complaint: Confusion, weakness Primary Care Provider: Pierre Spain MD ([facility]) History obtained from patient, family, and records. History somewhat limited from patient secondary to confusion. Medical history significant for ongoing tobacco abuse. Patient moved back to [place] to reside with father from [place], [place] last December 2022 because of ambulation issues. Refused to seek consultation for walking issues as per father. Patient had a fall at home last week without head trauma. No unusual pain as per patient. No syncope. Patient noted to be increasingly weak and confused the last 3 days as per father. No EtOH intake as per father. Increased urinary frequency. Episodic hemorrhoidal bleed. Denies headache, cough, SOB symptoms. Transient chest pain from discomfort. Patient denies abdominal pain. Denies black/bloody stools. Patient not eating as much. Patient brought to ER for evaluation. Lowest SBP of 80s documented at the ER. IV ceftriaxone and doxycycline administered at the ER. 600 cc urine obtained post Hernández catheter insertion. Medical History as above Surgical History : None Family History : Heart disease Personal/Social history : 2 cigarettes a day, occasional EtOH intake, currently unemployed Allergies Allergy/AdvReac Type Severity Reaction Status Date / Time No Known Allergies Allergy Unverified 10/16/23 00:27 Home Medications Medication Instructions Recorded Confirmed Type Elderberry Gummy 2 tabs PO DAILY 10/16/23 10/16/23 History acetaminophen 500 mg tablet 1,000 mg PO Q6H PRN Fever Or Pain 10/16/23 10/16/23 History (Tylenol Extra Strength) milk thistle 150 mg capsule 0 mg PO DAILY 10/16/23 10/16/23 History Past Med/Surg History Problem List (Updated 10/16/23 @ 07:04 by Feliberto Aggarwal MD) Hypotension Acute UTI (Acute) Acute urinary retention (Acute) Hypoalbuminemia due to protein-calorie malnutrition (Acute) Hypokalemia (Acute) Hypophosphatemia (Acute) Hypomagnesemia (Acute) Sepsis (Acute) Social History Smoking Status: Current every day smoker Hx Alcohol Use: No Hx Substance Use: No Preferred Language: Telugu Communication Ability: Effective Social Problems Specialist Required: No Beliefs That Will Affect Care: None Current Living Situation: Family Other Information That Helps Us Care for You: No Feels Safe at Home: Yes Safety Concerns: Feels Safe At This Time Assistive Devices: None Review of Systems Review of Systems: Could not be reliably obtained secondary to disorientation Physical Exam Physical Exam: GENERAL: Oriented to place, slightly uncomfortable, no respiratory distress SKIN: Pallor, warm HEENT: Pale palpebral conjunctivae, no ptosis, dry buccal mucosa, poor dentition NECK : Supple, no tenderness CHEST : CTA, no tenderness HEART : RRR, no obvious murmurs ABDOMEN: Some distention, nontender EXTREMITIES : No LE swelling/tenderness, no other conspicuous deformities noted NEUROLOGIC : Oriented to place, no facial asymmetry, gait and stance not assessed Results & Data Results & Data Vital Signs (Past 12 Hours) Vital Signs Temp Pulse Pulse Resp BP BP Pulse Ox 10/16/23 01:03 88 10/16/23 00:08 37.4 C 101 H 25 H 89/57 L 98 10/15/23 23:36 86/50 L 10/15/23 23:00 94 H 21 81/50 L 98 10/15/23 22:48 94 H 22 95 10/15/23 22:45 81/50 L 10/15/23 22:45 81/50 L 10/15/23 22:39 96 H 21 96 10/15/23 22:33 97 H 21 96 10/15/23 22:30 81/47 L 10/15/23 22:16 82/46 L 10/15/23 22:16 82/46 L 10/15/23 22:03 100 H 19 97 10/15/23 22:01 86/44 L 10/15/23 22:01 86/44 L 10/15/23 22:01 86/44 L 10/15/23 21:48 101 H 21 96 10/15/23 21:48 38.4 C H 103 H 22 88/48 L 97 10/15/23 21:46 88/48 L 10/15/23 21:44 85/69 L 10/15/23 21:39 100 H 24 95 10/15/23 21:33 103 H 26 H 95 10/15/23 21:30 96/54 L 10/15/23 21:27 105 H 22 96 10/15/23 21:06 107 H 24 94 10/15/23 21:00 113/68 10/15/23 20:57 112 H 26 H 95 10/15/23 20:55 94 10/15/23 20:49 112 H 28 H 116/68 95 10/15/23 20:49 10/15/23 20:48 110 H 26 H 94 10/15/23 20:46 116/68 10/15/23 20:46 116/68 10/15/23 20:44 117 H 10/15/23 20:43 114 H 21 116/68 95 O2 Del Method 10/16/23 01:03 10/16/23 00:08 Room Air 10/15/23 23:36 10/15/23 23:00 Room Air 10/15/23 22:48 10/15/23 22:45 10/15/23 22:45 10/15/23 22:39 10/15/23 22:33 10/15/23 22:30 10/15/23 22:16 10/15/23 22:16 10/15/23 22:03 10/15/23 22:01 10/15/23 22:01 10/15/23 22:01 10/15/23 21:48 10/15/23 21:48 Room Air 10/15/23 21:46 10/15/23 21:44 10/15/23 21:39 10/15/23 21:33 10/15/23 21:30 10/15/23 21:27 10/15/23 21:06 10/15/23 21:00 10/15/23 20:57 10/15/23 20:55 Room Air 10/15/23 20:49 Room Air 10/15/23 20:49 Room Air 10/15/23 20:48 10/15/23 20:46 10/15/23 20:46 10/15/23 20:44 10/15/23 20:43 Room Air Laboratory Results Laboratory Results WBC 11.10 K/ul (4.8-10.8) H 10/15/23 20:55 RBC 3.39 M/uL (4.70-6.10) L 10/15/23 20:55 Hgb 11.0 g/dl (14.0-18.0) L 10/15/23 20:55 Hct 33.0 % (42.0-52.0) L 10/15/23 20:55 MCV 97.3 fL (80.0-100.0) 10/15/23 20:55 MCH 32.4 pg (25.0-34.0) 10/15/23 20:55 MCHC 33.3 g/dL (32.0-36.0) 10/15/23 20:55 RDW Std Deviation 42.8 fL (36.4-46.3) 10/15/23 20:55 RDW Coeff of Luis 11.9 % (11.5-14.5) 10/15/23 20:55 Plt Count 139 K/uL (130-400) 10/15/23 20:55 MPV 10.0 fL (9.4-12.4) 10/15/23 20:55 Immature Gran % (Auto) 0.7 % 10/15/23 20:55 Neut % (Auto) 95.5 % 10/15/23 20:55 Lymph % (Auto) 2.4 % 10/15/23 20:55 Johnston % (Auto) 1.0 % 10/15/23 20:55 Eos % (Auto) 0.3 % 10/15/23 20:55 Baso % (Auto) 0.1 % 10/15/23 20:55 Neut # (Auto) 10.60 K/uL (1.40-6.50) H 10/15/23 20:55 Lymph # (Auto) 0.27 K/uL (1.20-3.40) L 10/15/23 20:55 Johnston # (Auto) 0.11 K/uL (0.11-0.59) 10/15/23 20:55 Eos # (Auto) 0.03 K/uL (0.00-0.50) 10/15/23 20:55 Baso # (Auto) 0.01 K/uL (0.00-0.20) 10/15/23 20:55 Immature Gran # (Auto) 0.08 K/uL (0.01-0.20) 10/15/23 20:55 Sodium 136 mmol/L (136-145) 10/15/23 20:55 Potassium 3.4 mmol/L (3.5-5.1) L 10/15/23 20:55 Chloride 105 mmol/L (98-107) 10/15/23 20:55 Carbon Dioxide 23 mmol/L (21-32) 10/15/23 20:55 Anion Gap 8 (3-11) 10/15/23 20:55 BUN 16 mg/dl (6-23) 10/15/23 20:55 Creatinine 0.92 mg/dl (0.6-1.4) 10/15/23 20:55 Est Cr Clr Drug Dosing 113.9 ml/min 10/15/23 20:55 Est GFR ( Amer) 117.6 ml/min 10/15/23 20:55 Est GFR (Non-Af Amer) 101.5 ml/min 10/15/23 20:55 BUN/Creatinine Ratio 17.4 (10-20) 10/15/23 20:55 Glucose 104 mg/dl (70-99(Fasting)) H 10/15/23 20:55 Osmolality 285 mOsm/kg (280-300) 10/15/23 23:45 Lactate 1.2 mmol/L (0.4-2.0) 10/15/23 20:55 Calcium 8.3 mg/dl (8.6-10.3) L 10/15/23 20:55 Phosphorus 1.4 mg/dl (2.5-4.9) L* 10/15/23 20:55 Magnesium 1.3 mg/dl (1.7-2.4) L 10/15/23 20:55 Total Bilirubin 0.5 mg/dl (0.2-1.0) 10/15/23 20:55 Direct Bilirubin 0.2 mg/dl (0-0.2) 10/15/23 20:55 AST 23 U/L (13-39) 10/15/23 20:55 ALT 35 U/L (7-52) 10/15/23 20:55 Alkaline Phosphatase 53 U/L (34-104) 10/15/23 20:55 Total Creatine Kinase 51 U/L (30-223) 10/15/23 20:55 Troponin I High Sens 5.5 pg/ml (0-20) 10/15/23 20:55 Total Protein 8.0 gm/dl (6.0-8.3) 10/15/23 20:55 Albumin 2.9 gm/dl (3.4-5.0) L 10/15/23 20:55 Lipase 20 U/L (11-82) 10/15/23 20:55 Procalcitonin 3.45 ng/ml (0-0.5) H 10/15/23 20:55 Urine Color Yellow 10/16/23 00:57 Urine Appearance Cloudy (Clear) A 10/16/23 00:57 Urine pH 7.5 (4.5-7.5) 10/16/23 00:57 Ur Specific [place] 1.021 (1.000-1.030) 10/16/23 00:57 Urine Protein 1+ (Negative) H 10/16/23 00:57 Urine Glucose (UA) Negative (Negative) 10/16/23 00:57 Urine Ketones Negative (Negative) 10/16/23 00:57 Urine Blood 2+ (Negative) H 10/16/23 00:57 Urine Nitrite Positive (Negative) A 10/16/23 00:57 Urine Bilirubin Negative (Negative) 10/16/23 00:57 Urine Urobilinogen Negative (Negative) 10/16/23 00:57 Ur Leukocyte Esterase 3+ (Negative) H 10/16/23 00:57 Urine WBC (Auto) >50 /hpf (0-5) H 10/16/23 00:57 Urine RBC (Auto) 11-20 /hpf (0-2) H 10/16/23 00:57 U Hyaline Cast (Auto) 0-2 /lpf (0-2) 10/16/23 00:57 U Epithel Cells (Auto) 0-2 /hpf (0-2) 10/16/23 00:57 Urine Bacteria (Auto) 4+ (None Seen) H 10/16/23 00:57 Nasal Screen MRSA (PCR) Negative (Negative) 10/16/23 00:10 Adenovirus (PCR) Not Detected (NotDetected) 10/15/23 20:55 Anaplasma Smear See Comment 10/15/23 20:55 Babesia Smear See Comment 10/15/23 20:55 B. pertussis DNA (PCR) Not Detected (NotDetected) 10/15/23 20:55 B.parapertussis DNA PCR Not Detected (NotDetected) 10/15/23 20:55 Lyme Disease Screen Negative (Negative) 10/15/23 20:55 C. pneumoniae DNA (PCR) Not Detected (NotDetected) 10/15/23 20:55 Coronavirus OC43 (PCR) Not Detected (NotDetected) 10/15/23 20:55 Coronavirus HKU1 (PCR) Not Detected (NotDetected) 10/15/23 20:55 Coronavirus 229E (PCR) Not Detected (NotDetected) 10/15/23 20:55 SARS-CoV-2 (PCR) Not Detected (NotDetected) 10/15/23 20:55 Coronavirus NL63 (PCR) Not Detected (NotDetected) 10/15/23 20:55 Human Metapneumovir PCR Not Detected (NotDetected) 10/15/23 20:55 Influenza Type A (PCR) Not Detected (NotDetected) 10/15/23 20:55 Influenza Type B (PCR) Not Detected (NotDetected) 10/15/23 20:55 M. pneumoniae (PCR) Not Detected (NotDetected) 10/15/23 20:55 Parainfluenza 1 (PCR) Not Detected (NotDetected) 10/15/23 20:55 Parainfluenza 2 (PCR) Not Detected (NotDetected) 10/15/23 20:55 Parainfluenza 3 (PCR) Not Detected (NotDetected) 10/15/23 20:55 Parainfluenza 4 (PCR) Not Detected (NotDetected) 10/15/23 20:55 RSV (PCR) Not Detected (NotDetected) 10/15/23 20:55 Entero/Rhino (PCR) Not Detected (NotDetected) 10/15/23 20:55 Impressions Abdomen/Pelvis CT 10/15/23 22:25 Exam(s): CT ABDOMEN + PELVIS With Contrast IV Amt: 119 ml optiray 320 EXAM: CT Abdomen and Pelvis With Intravenous Contrast CLINICAL HISTORY: Reason for exam: sepsis, ?UTI. TECHNIQUE: Axial computed tomography images of the abdomen and pelvis with intravenous contrast. CTDI is 54.68 mGy and DLP is 2174.08 mGy-cm. Automated exposure control was utilized for the study. A dose lowering technique was utilized adhering to the principles of ALARA. CONTRAST: Patient received 119 ml optiray 320 of IV contrast COMPARISON: No relevant prior studies available. FINDINGS: Lung bases: Unremarkable. No mass. No consolidation. ABDOMEN: Liver: Hepatomegaly. Gallbladder and bile ducts: Unremarkable. No calcified stones. No ductal dilation. Pancreas: Unremarkable. No mass. No ductal dilation. Spleen: Unremarkable. No splenomegaly. Adrenals: Unremarkable. No mass. Kidneys and ureters: Nonobstructing left intrarenal calculus. Stomach and bowel: Large amount stool within the colon. No mucosal thickening. PELVIS: Appendix: No findings to suggest acute appendicitis. Bladder: Distended urinary bladder. Mild circumferential wall thickening and associated inflammatory change. Reproductive: Unremarkable as visualized. ABDOMEN and PELVIS: Intraperitoneal space: Unremarkable. No free air. No significant fluid collection. Bones/joints: Grade 1 anterolisthesis of L5 on S1. No acute fracture. No dislocation. Soft tissues: Unremarkable. Vasculature: Unremarkable. No abdominal aortic aneurysm. Lymph nodes: Unremarkable. No enlarged lymph nodes. IMPRESSION: Distended urinary bladder with mild circumferential wall thickening and subtle associated inflammatory change. Findings may represent cystitis in the appropriate clinical setting. Electronically signed by: Tiago Boston MD 10/16/23 00:35 AM Chest CTA 10/15/23 22:25 Exam(s): CTA CHEST IV Amt: 119 ml optiray 320 EXAM: CT Angiography Chest With Intravenous Contrast CLINICAL HISTORY: Reason for exam: tachycardia, hypoxia, r/o PE. TECHNIQUE: Axial computed tomographic angiography images of the chest with intravenous contrast. CTDI is 54.68 mGy and DLP is 2174.08 mGy-cm. Automated exposure control was utilized for the study. A dose lowering technique was utilized adhering to the principles of ALARA. MIP reconstructed images were created and reviewed. COMPARISON: No relevant prior studies available. FINDINGS: Limitations: Exam slightly limited secondary to patient respiratory motion. Pulmonary arteries: Unremarkable. No pulmonary embolism. Aorta: No acute findings. No thoracic aortic aneurysm. Lungs: Subtle groundglass opacity within the left upper lobe. Pleural space: Unremarkable. No significant effusion. No pneumothorax. Heart: Unremarkable. No cardiomegaly. No significant pericardial effusion. No evidence of RV dysfunction. Bones/joints: No acute fracture. No dislocation. Soft tissues: Unremarkable. Lymph nodes: Unremarkable. No enlarged lymph nodes. IMPRESSION: No acute findings in the visualized arteries of the chest. Left upper lobe pneumonia Electronically signed by: Tiago Boston MD 10/16/23 01:[address] 10/15/23 22:25 Exam(s): CT HEAD Without Contrast EXAM: CT Head Without Intravenous Contrast CLINICAL HISTORY: Reason for exam: ams fever. TECHNIQUE: Axial computed tomography images of the head/brain without intravenous contrast. CTDI is 35.79 mGy and DLP is 624.41 mGy-cm. Automated exposure control was utilized for the study. A dose lowering technique was utilized adhering to the principles of ALARA. COMPARISON: No relevant prior studies available. FINDINGS: Brain: Unremarkable. No hemorrhage. No significant white matter disease. No edema. Ventricles: Unremarkable. No ventriculomegaly. Bones/joints: Unremarkable. No acute fracture. Soft tissues: Unremarkable. Sinuses: Unremarkable as visualized. No acute sinusitis. Mastoid air cells: Unremarkable as visualized. No mastoid effusion. IMPRESSION: Normal head/brain CT. Electronically signed by: Tiago Boston MD 10/16/23 00:[address] 10/15/23 22:25 Exam(s): CT VENOGRAPHY IV Amt: 119 ml optiray 320 EXAM: CT Head With Intravenous Contrast CLINICAL HISTORY: Reason for exam: ams, fever. TECHNIQUE: Axial computed tomography images of the head/brain with intravenous contrast. CTDI is 35.79 mGy and DLP is 624.41 mGy-cm. Automated exposure control was utilized for the study. A dose lowering technique was utilized adhering to the principles of ALARA. CONTRAST: Patient received 119 ml optiray 320 of IV contrast COMPARISON: No relevant prior studies available. FINDINGS: Brain: Unremarkable. No hemorrhage. No edema. Normal enhancement. Ventricles: Unremarkable. No ventriculomegaly. Bones/joints: Unremarkable. No acute fracture. Soft tissues: Unremarkable. Sinuses: Unremarkable as visualized. No acute sinusitis. Mastoid air cells: Unremarkable as visualized. No mastoid effusion. Vascular structures: Unremarkable IMPRESSION: Normal head/brain CT. Electronically signed by: Tiago Boston MD 10/16/23 01:[address] 10/15/23 22:30 Exam(s): CT FACIAL With Contrast IV Amt: 119 ml optiray 320 EXAM: CT Maxillofacial With Intravenous Contrast CLINICAL HISTORY: Reason for exam: sepsis, dental caries. TECHNIQUE: Axial computed tomography images of the face with intravenous contrast. CTDI is 21.37 mGy and DLP is 10.69 mGy-cm. Automated exposure control was utilized for the study. A dose lowering technique was utilized adhering to the principles of ALARA. CONTRAST: Patient received 119 ml optiray 320 of IV contrast COMPARISON: No relevant prior studies available. FINDINGS: Bones/joints: No acute fracture. Soft tissues: Unremarkable. No rim-enhancing fluid collection to suggest abscess. Orbits: Unremarkable. Sinuses: . No air-fluid levels. IMPRESSION: Normal maxillofacial CT. Electronically signed by: Tiago Boston MD 10/16/23 01:40 AM Diagnostic Findings EKG as per my interpretation : Rate 120, sinus tachycardia, normal axis, nonspecific T wave abnormalities
[2023-10-16] MEDS ORDERED: PROMETHAZINE 6.25 MG/50.25 ML BAG IV PRN (02:19)
[2023-10-16] MEDS: CEFEPIME 2,000 MG/20 ML VIAL IV STA (02:20)
[2023-10-16] MEDS: NSS + 20MEQ KCL 20 MEQ/1,000 ML BAG IV STA (02:21)
[2023-10-16 03:02] LABS: Hematocrit (blood only) 29.3 % (42.0-52.0); Hemoglobin 9.6 g/dl (14.0-18.0); Mean Corpuscular Hemoglobin 32.7 pg (25.0-34.0); Mean Corpuscular Hgb Conc 32.8 g/dL (32.0-36.0); Mean Corpuscular Volume 99.7 fL (80.0-100.0); Mean Platelet Volume 10.2 fL (9.4-12.4); Platelet Count 136 K/uL (130-400); RDW Coefficient of Variation 12.1 % (11.5-14.5); RDW Standard Deviation 44.1 fL (36.4-46.3); Red Blood Count 2.94 M/uL (4.70-6.10); Reticulocyte % 1.01 % (0.50-2.00); White Blood Count 17.16 K/ul (4.8-10.8)
[2023-10-16 03:14] LABS: Prothrombin Time 10.8 Seconds (9.0-12.0)
[2023-10-16 03:20] LABS: Basophils # (auto) 0.01 K/uL (0.00-0.20); Basophils % (auto) 0.1 %; Immature Granulocytes # (auto) 0.27 K/uL (0.01-0.20); Immature Granulocytes % (auto) 1.6 %; Lymphocytes % (auto) 3.5 %; Monocytes # (auto) 0.52 K/uL (0.11-0.59); Neutrophils # (auto) 15.76 K/uL (1.40-6.50); Neutrophils % (auto) 91.8 %; RBC Morphology Unremarkable
[2023-10-16 03:50] LABS: Anion Gap 5 (3-11); BUN Creatinine Ratio 15.5 (10-20); Blood Urea Nitrogen 15 mg/dl (6-23); Calcium 7.9 mg/dl (8.6-10.3); Carbon Dioxide 21 mmol/L (21-32); Chloride 111 mmol/L (98-107); Creatinine Clr Calc Pharmacy 108.1 ml/min; Est GFR (African American) 110.4 ml/min; Est GFR (Non-African American) 95.2 ml/min; Glucose 119 mg/dl (70-99(Fasting)); Potassium 3.8 mmol/L (3.5-5.1); Sodium 137 mmol/L (136-145)
[2023-10-16 04:11] LABS: Ferritin 315.4 ng/ml (8-388)
[2023-10-16 04:13] LABS: Iron < 10 mcg/dl (35-175); Magnesium 2.1 mg/dl (1.7-2.4); Phosphorus 3.2 mg/dl (2.5-4.9); Transferrin 139 mg/dl (200-360)
[2023-10-16 04:47] LABS: Troponin I High Sensitivity 13.2 pg/ml (0-20)
[2023-10-16 04:59] LABS: Folate (Folic Acid),Ser orPlas 7.34 ng/ml (>5.38)
--- NOTE | 2023-10-16 07:27 | XRay Report ---
SINGLE VIEW CHEST CLINICAL HISTORY: Sepsis. FINDINGS: An AP, portable, semierect chest radiograph is obtained. No prior studies are available for comparison at the time of dictation. The heart is top normal for projection. The pulmonary vasculatu re is noncongested. Nonspecific interstitial thickening is likely chronic. There is mild bibasilar sc arring/atelectasis. No airspace consolidation or large pleural effusion is identified. No pneumothora x is seen. The skeletal structures are osteopenic. The bony thorax is grossly intact. IMPRESSION: No acute cardiopulmonary abnormality is identified. ACT 112: Negative or not required by law. Electronically signed by: Jacques Iverson M.D. 10/16/2023 7:26 AM
[2023-10-16] MEDS: CEFEPIME 2,000 MG in SYRINGE 0 ML IV SCH (09:54)
--- NOTE | 2023-10-16 13:19 | Hospitalist Progress Note ---
Date of Service October 16, 2023 Assessment & Plan (1) Septic shock: (2) Sepsis due to urinary tract infection: (3) Acute metabolic encephalopathy: (4) Electrolyte abnormality: (5) Moderate protein malnutrition: (6) Rapidly progressive weakness: (7) Iron deficiency anemia: (8) Bleeding hemorrhoids: Plan Patient presents with acute septic shock and most likely due to urinary tract infection with encephalopathy, leukocytosis and hypotension. Shock has improved patient responded to fluid resuscitation. Mean arterial pressure 74. Patient remains critically ill requiring hospital level care, monitoring and intervention. High risk of decompensation without these interventions Continue antibiotics Continue to monitor laboratory studies and cultures Replace B12 Replace iron Check TSH, check HIV Additionally patient has been reporting progressively/rapidly progressive weakness over the past 8 months. Preliminary evaluation here in the hospital. May need outpatient neurology evaluation, EMG/nerve conduction studies. Father at bedside updated plan of care 54 minutes spent in coordinating care, review of record, communication with family Admission and Anticipated Discharge Date Admission Date: October 16, 2023 Subjective Patient is feeling improved. No chest pain. No lightheadedness or dizziness. Father at bedside Physical Exam Physical Exam: Constitutional: Alert, ill but nontoxic, frail HEENT: Mucous membranes moist. Lungs: Clear to auscultation, decreased, no wheezes rales or rhonchi CV: S1-S2, regular, slightly tachycardic Abdomen: Soft, nontender, nondistended Extremities: No significant edema Neuro: No focal deficits, generalized weakness Psych: Cooperative, normal mood Results & Data Results & Data Vital Signs (Past 12 Hours) Vital Signs Temp Pulse Pulse Resp BP BP Pulse Ox 10/16/23 10:46 79 10/16/23 10:18 36.9 C 75 18 106/67 98 10/16/23 04:07 36.9 C 82 18 93/62 L 99 10/16/23 02:30 84 19 96 10/16/23 02:30 88/57 L 10/16/23 02:30 88/57 L 10/16/23 02:30 88/57 L 10/16/23 02:26 83 17 90/54 L 97 10/16/23 02:15 83 18 98 10/16/23 02:15 90/54 L 10/16/23 02:15 90/54 L 10/16/23 02:15 90/54 L 10/16/23 02:00 88 12 99 08/26/24 02:00 91/61 L 10/16/23 02:00 91/61 L 10/16/23 02:00 91/61 L 10/16/23 01:51 82 20 97 10/16/23 01:45 92/56 L 10/16/23 01:39 83 19 99 10/16/23 01:30 88/56 L 10/16/23 01:15 91/58 L 10/16/23 01:15 91/58 L 10/16/23 01:12 86 17 99 O2 Del Method 10/16/23 10:46 10/16/23 10:18 Room Air 10/16/23 04:07 Room Air 10/16/23 02:30 10/16/23 02:30 10/16/23 02:30 10/16/23 02:30 10/16/23 02:26 Room Air 10/16/23 02:15 10/16/23 02:15 10/16/23 02:15 10/16/23 02:15 10/16/23 02:00 10/16/23 02:00 10/16/23 02:00 10/16/23 02:00 10/16/23 01:51 10/16/23 01:45 10/16/23 01:39 10/16/23 01:30 10/16/23 01:15 10/16/23 01:15 10/16/23 01:12 Diagnostic Findings Reviewed imaging, laboratory and diagnostic studies. Pertinent findings as below. WBC 17.1 Phosphorus 3.2, improved Magnesium 2.1, improved Trans ferritin 139 Iron less than 10 B12 206 Folate 7.3 Procalcitonin 3.4 Imaging reviewed
[2023-10-16] MEDS: CYANOCOBALAMIN (B-12) 500 MCG TABLET PO SCH (13:59)
[2023-10-16] MEDS: SODIUM FERRIC GLUCONATE 125 MG in 0.9 % SODIUM CHLORIDE 100 ML IV ONE (16:41)
[2023-10-16] MEDS: ACETAMINOPHEN 325 MG TAB PO PRN (17:59)
[2023-10-16] MEDS: FERROUS SULFATE 325 MG TAB PO SCH (18:07)
--- NOTE | 2023-10-17 05:58 | Electrocardiogram Report ---
Test Reason : Blood Pressure : */* mmHG Vent. Rate : 116 BPM Atrial Rate : 116 BPM P-R Int : 128 ms QRS Dur : 86 ms QT Int : 312 ms P-R-T Axes : 63 30 71 degrees QTcB Int : 433 ms Sinus tachycardia Nonspecific T wave abnormality No previous ECGs available Confirmed by Gage Basurto ([id number]) on 10/17/2023 5:58:42 AM Referred By: REFERRED SELF Confirmed By: Gage Basurto
[2023-10-17 08:44] LABS: Hematocrit (blood only) 32.6 % (42.0-52.0); Hemoglobin 10.9 g/dl (14.0-18.0); Mean Corpuscular Hemoglobin 33.3 pg (25.0-34.0); Mean Corpuscular Hgb Conc 33.4 g/dL (32.0-36.0); Mean Corpuscular Volume 99.7 fL (80.0-100.0); Mean Platelet Volume 10.6 fL (9.4-12.4); Platelet Count 146 K/uL (130-400); RDW Coefficient of Variation 12.5 % (11.5-14.5); RDW Standard Deviation 45.4 fL (36.4-46.3); Red Blood Count 3.27 M/uL (4.70-6.10); White Blood Count 7.84 K/ul (4.8-10.8)
[2023-10-17 09:06] LABS: BUN Creatinine Ratio 14.4 (10-20); Calcium 8.4 mg/dl (8.6-10.3); Creatinine Clr Calc Pharmacy 116.5 ml/min; Est GFR (African American) 120.8 ml/min; Est GFR (Non-African American) 104.2 ml/min; Magnesium 1.7 mg/dl (1.7-2.4); Phosphorus 3.2 mg/dl (2.5-4.9)
--- NOTE | 2023-10-17 10:36 | Hospitalist Progress Note ---
Date of Service October 17, 2023 Assessment & Plan (1) Sepsis due to urinary tract infection: (2) Rapidly progressive weakness: (3) Moderate protein malnutrition: (4) Septic shock: (5) Acute metabolic encephalopathy: (6) Electrolyte abnormality: (7) Iron deficiency anemia: (8) Bleeding hemorrhoids: Plan Patient presented what appears to be septic shock due to gram-negative urinary tract infection. Septic shock has resolved. Blood pressure is stabilized. WBCs normalized. Continue IV antibiotics, await sensitivities Remove Hernández catheter, voiding trial to evaluate for ongoing issues with retention Continue activities Follow-up pending laboratory studies Patient has had progressive weakness and physical decline over the past 8 months to the point where he spending a lot of his time in bed. Imaging and laboratory studies unrevealing at this time. Will consult neurology to further evaluate for possible neuromuscular disorder, anticipate will need ongoing outpatient follow-up Continue oral iron supplementation Continue oral B12 supplementation Continue therapies Anticipate possible discharge as soon as tomorrow if continue to improve and able to be converted to oral antibiotics. Admission and Anticipated Discharge Date Admission Date: October 16, 2023 Subjective Patient reports feeling much better. Ambulated the halls and did some stairs with therapy today. Really would like to get Hernández catheter out. Physical Exam Physical Exam: Constitutional: Alert, significantly improved in appearance, nontoxic. HEENT: Mucous membranes moist. Lungs: Clear to auscultation, decreased, no wheezes rales or rhonchi CV: S1-S2, regular Abdomen: Soft, nontender, nondistended Extremities: No significant edema Neuro: No focal deficits Psych: Cooperative, normal mood Results & Data Results & Data Vital Signs (Past 12 Hours) Vital Signs Temp Pulse Resp BP Pulse Ox O2 Del Method 10/17/23 07:48 36.7 C 57 L 18 113/75 97 Room Air Diagnostic Findings [facility] Blood culture no growth to date Urine culture gram-negative bacilli, 50,000 organisms WBCs 7.8, normalized Electrolytes stabilize TSH 1.27 IV testing pendingH
--- NOTE | 2023-10-17 15:26 | Magnetic Resonance Report ---
MRI OF THE BRAIN WITHOUT IV CONTRAST CLINICAL HISTORY: Progressive weakness. Neuromuscular condition. COMPARISON STUDY: CT of the brain dated 10/15/2023. TECHNIQUE: MRI of the brain was performed utilizing various T1 and T2-weighted sequences in the axial , sagittal, and coronal planes. IV contrast was not administered for this examination. The examinatio n is degraded by motion artifact. FINDINGS: Brain parenchyma: Involutional changes advanced for age. There is diffuse T2 signal abnormality seen throughout the white matter, which is greatest posteriorly. There is also abnormal signal within the cerebellar white matter. There is no hemorrhage or mass effect. There is no restricted typical for ac fabrizio ischemia. Chiu-white matter differentiation is preserved. No extra-axial fluid collection is seen . The cerebellar tonsils are normal in configuration. Ventricles, sulci, and cisterns: Normal in configuration. Pituitary and sella: Unremarkable. Intracranial vasculature: Normal flow voids are maintained at the skull base. Orbits: The bony orbits are grossly intact. Orbital contents are normal in appearance. Sinuses and mastoids: There is mild/moderate mucosal thickening in the left maxillary antrum. Trace m ucosal thickening is seen in the right maxillary sinus. Mastoid air cells are clear. Calvarium: Unremarkable. Cervical cord: Partially visualized cervical spinal cord is normal in morphology and signal intensity . IMPRESSION: 1. There is diffuse T2/FLAIR signal abnormality seen throughout the white matter as detailed above. T his indication a nonspecific leukoencephalopathy/leukodystrophy which carries a broad differential. T his could be related to demyelination, an infectious/inflammatory process, or possibly a toxic/metabo lic process. Clinical and laboratory correlation will be essential. 2. Mild involutional change is greater than expected for age. 3. There is no hemorrhage, mass effect, or evidence of acute ischemia. ACT 112: Negative or not required by law. Electronically signed by: Jacques Iverson M.D. 10/17/2023 3:24 PM
--- NOTE | 2023-10-17 16:28 | Neurology Consultation ---
Date of Consultation October 17, 2023 Assessment & Plan (1) Rapidly progressive weakness: Due to a systemic illness associated with cachexia, and cognitive decline. Recurrent unusual infections (2) Cognitive changes: MRI of the brain shows diffuse white matter changes concerning for infectious versus inflammatory etiology. Differential diagnosis includes HIV/PML. Lymphoma. Infectious etiology . Recommend checking HIV status. Recommend MRI with contrast to rule out enhancement., send serology for VZV, CMV HIV viral load and CSF, MIKAYLA level. LP sent for CSF cell count and differential, glucose, protein, bacterial Gram stain and culture, fungal stain and culture, cytology, flow cytometry ABDI virus PCR DNA testing Further recommendations to follow Telehealth Consultation Telehealth Information Telehealth Information: I performed this visit using a real-time telehealth connection between my location and the patients location ([facility]). After connecting through interactive tele-video, patient was identified by name and date of and/or wristband check.Patient (or authorized healthcare service liaison representative) was informed that this was a telemedicine visit and it was being conducted confidentially over secure lines. My office door was closed and no one else was present in the room with me.Patient (or authorized healthcare service liaison representative) provided consent to proceed with the visit, expressed an understanding of privacy and security of the telemedicine visit, and gave permission to have a hospital service liaison representative in the room in order to assist with the visit and to conduct portions of the visit, as needed. I informed the patient (or authorized healthcare service liaison representative) that I reviewed their record and presented the opportunity for them to ask any questions regarding the visit today. The patient agreed to participate. 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 The patient was brought to the hospital for altered mental status by his daughter and found to be in urosepsis with urine analysis showing gram-negative bacilli, the patient was with a better mentation after IV hydration and starting antibiotics. However on further history obtained from the father it is noted that the patient has had mental and physical decline over the past 8 months and had been having to be cared for by his father. The patient cannot provide coherent history however he tells me that he feels tired most of the time he feels foggy and feels like he wants to sleep most of the time, his arms and legs feel tired, when asked about any weight loss he states that he had lost a lot of weight but then gained it back. He denies any feelings of depression. Again the patient cannot provide reliable past medical history. He denies any blurry vision or headaches. Denies any unilateral weakness or any difficulties with balance it is just the generalized fatigue that he feels. Allergies Allergy/AdvReac Type Severity Reaction Status Date / Time No Known Allergies Allergy Unverified 10/16/23 00:27 Home Medications Medication Instructions Recorded Confirmed Type Elderberry Gummy 2 tabs PO DAILY 10/16/23 10/16/23 History acetaminophen 500 mg tablet 1,000 mg PO Q6H PRN Fever Or Pain 10/16/23 10/16/23 History (Tylenol Extra Strength) milk thistle 150 mg capsule 0 mg PO DAILY 10/16/23 10/16/23 History Patient History Social History Smoking Status: Current every day smoker Hx Alcohol Use: No Hx Substance Use: No Preferred Language: Belarusian Communication Ability: Effective Leno Sewer Required: No Beliefs That Will Affect Care: None Current Living Situation: Family Other Information That Helps Us Care for You: No Feels Safe at Home: Yes Safety Concerns: Feels Safe At This Time Assistive Devices: Cane, Hospital Bed and Walker Review of Systems Constitutional: Patient denies weight loss, fever, chills, and night sweats Eyes: Patient denies change in vision, tearing, pain, and redness ENT: Patient denies pain, bleeding, rhinorrhea, and dysphagia Cardiovascular: Patient denies chest pain, palpitation, dyspnea at rest, and dyspnea with exertion Respiratory: Patient denies shortness of breath, cough, wheezing, and productive cough GI: Patient denies reflux, pain, constipation, and diarrhea Skin: Patient denies rash, dryness, and itching Allergies/Immune System: Patient denies rhinorrhea, seasonal allergies, reaction to current MEDS, and joint swelling Endocrine: Patient denies weight loss, weight gain, temperature intolerance, and excessive thirst Neurological: All negative unless mentioned in the HPI Physical Exam General Constitutional: Appearance normally developed however appears thin with some cachexia. Head and face: normocephalic and atraumatic Eyes: no ptosis, no anisocoria, and no dysconjugate gaze Respiratory: normal effort Cardiovascular: regular rhythm and regular rate Abdomen: non distended Skin: Some facial pimples Psychiatric: normal judgement and insight, normal mood, and normal affect NEUROLOGIC EXAMINATION: Mental Status:alert, oriented to time, place, person, the patient does not appear to have significant insight to his mental decline, he is able to recall whenever he is asked direct questions however does not give a coherent chronological history Cranial Nerves: CN 2 - no visual defect on confrontation and pupils round, equal, reactive to light CN 3, 4, 6 - extra-ocular movements intact and no nystagmus CN 5 - facial sensation intact CN 7 - no facial asymmetry CN 8 - intact hearing CN 9, 10 - palate symmetric, normal gag CN 11 - good shoulder shrug CN 12 - tongue midline MOTOR: Strength was at least antigravity throughout, Pronator drift was absent and There were no abnormal movements SENSATION: intact and symmetric to pinprick, light touch, vibration and joint position GAIT: stable, no ataxia COORDINATION: no ataxia with finger to nose testing and heel to ny testing REFLEXES: cannot assess over telemedicine Results & Data Vital Signs (Past 12 Hours) Vital Signs Temp Pulse Resp BP Pulse Ox O2 Del Method 10/17/23 15:37 36.7 C 51 L 18 104/69 98 Room Air 10/17/23 07:48 36.7 C 57 L 18 113/75 97 Room Air Laboratory Results Abnormal lab results 10/17/23 Range/Units 07:48 RBC 3.27 L (4.70-6.10) M/uL Hgb 10.9 L (14.0-18.0) g/dl Hct 32.6 L (42.0-52.0) % Chloride 110 H (98-107) mmol/L Calcium 8.4 L (8.6-10.3) mg/dl Diagnostic Findings Brain MRI 10/17/23 10:59 MRI OF THE BRAIN WITHOUT IV CONTRAST CLINICAL HISTORY: Progressive weakness. Neuromuscular condition. COMPARISON STUDY: CT of the brain dated 10/15/2023. TECHNIQUE: MRI of the brain was performed utilizing various T1 and T2-weighted sequences in the axial, sagittal, and coronal planes. IV contrast was not administered for this examination. The examination is degraded by motion artifact. FINDINGS: Brain parenchyma: Involutional changes advanced for age. There is diffuse T2 signal abnormality seen throughout the white matter, which is greatest posteriorly. There is also abnormal signal within the cerebellar white matter. There is no hemorrhage or mass effect. There is no restricted typical for acute ischemia. Chiu-white matter differentiation is preserved. No extra-axial fluid collection is seen. The cerebellar tonsils are normal in configuration. Ventricles, sulci, and cisterns: Normal in configuration. Pituitary and sella: Unremarkable. Intracranial vasculature: Normal flow voids are maintained at the skull base. Orbits: The bony orbits are grossly intact. Orbital contents are normal in appearance. Sinuses and mastoids: There is mild/moderate mucosal thickening in the left maxillary antrum. Trace mucosal thickening is seen in the right maxillary sinus. Mastoid air cells are clear. Calvarium: Unremarkable. Cervical cord: Partially visualized cervical spinal cord is normal in morphology and signal intensity. IMPRESSION: 1. There is diffuse T2/FLAIR signal abnormality seen throughout the white matter as detailed above. This indication a nonspecific leukoencephalopathy/leukodystrophy which carries a broad differential. This could be related to demyelination, an infectious/inflammatory process, or possibly a toxic/metabolic process. Clinical and laboratory correlation will be essential. 2. Mild involutional change is greater than expected for age. 3. There is no hemorrhage, mass effect, or evidence of acute ischemia. ACT 112: Negative or not required by law. Electronically signed by: Jacques Iverson M.D. 10/17/2023 3:24 PM Medications Administered Home Medications Medication Instructions Recorded Confirmed Last Taken Elderberry Gummy 2 tabs PO DAILY 10/16/23 10/16/23 Unknown acetaminophen 500 mg tablet 1,000 mg PO Q6H PRN Fever Or Pain 10/16/23 10/16/23 10/15/23 (Tylenol Extra Strength) milk thistle 150 mg capsule 0 mg PO DAILY 10/16/23 10/16/23 Unknown Active Medications Generic Name Dose Route Start Last Admin Trade Name Freq PRN Reason Stop Dose Admin Acetaminophen 650 mg 10/16/23 02:19 10/17/23 08:15 Acetaminophen 325 Mg Tab PO 11/15/23 02:18 650 mg QID PRN Administration pain/fever Cyanocobalamin 500 mcg 10/16/23 13:00 10/17/23 07:23 Cyanocobalamin (B-12) 500 Mcg Tablet PO 11/15/23 12:59 500 mcg QAM JEREL Administration Ferrous Sulfate 325 mg 10/16/23 17:00 10/17/23 07:23 Ferrous Sulfate 325 Mg Tab PO 11/15/23 16:59 325 mg BIDM JEREL Administration Cefepime HCl 2,000 mg/ Syringe 20 mls @ 5 mls/min 10/16/23 10:00 10/17/23 10:15 IV 10/26/23 09:59 5 mls/min Q8H JEREL Administration Protocol
[2023-10-18 07:33] LABS: Hematocrit (blood only) 32.4 % (42.0-52.0); Mean Corpuscular Hemoglobin 33.1 pg (25.0-34.0); Mean Corpuscular Volume 97.6 fL (80.0-100.0); Mean Platelet Volume 10.7 fL (9.4-12.4); Platelet Count 153 K/uL (130-400); RDW Coefficient of Variation 12.1 % (11.5-14.5); RDW Standard Deviation 43.4 fL (36.4-46.3); Red Blood Count 3.32 M/uL (4.70-6.10); White Blood Count 5.44 K/ul (4.8-10.8)
[2023-10-18 08:04] LABS: BUN Creatinine Ratio 14.1 (10-20); Calcium 8.6 mg/dl (8.6-10.3); Creatinine Clr Calc Pharmacy 123.3 ml/min; Est GFR (African American) 123.7 ml/min; Est GFR (Non-African American) 106.7 ml/min; Magnesium 1.6 mg/dl (1.7-2.4); Potassium 4.5 mmol/L (3.5-5.1)
[2023-10-18] MEDS: LORazepam 2 MG/1 ML VIAL IV STA ×3 (11:20→23:41)
[2023-10-18] MEDS: ACETAMINOPHEN 1,000 MG/100 ML VIAL IV STA (11:21)
[2023-10-18 13:41] LABS: Appearance CSF Clear; CSF Count Tube # 3; CSF Xanthrochromic No xanthochromia; Color CSF Colorless; Red Blood Cell CSF Manual 1 (0-); White Blood Cell CSF Manual 1 (0-5)
[2023-10-18 13:50] LABS: Total Protein CSF 53.7 mg/dl (15-45)
--- NOTE | 2023-10-18 14:50 | Fluoroscopy Report ---
LUMBAR PUNCTURE UNDER FLUOROSCOPY CLINICAL HISTORY: Altered mental status with progressive weakness; septic shock PROCEDURE: Procedure and risks were explained. Informed consent was obtained. A final timeout was com pleted. The patient was placed prone on the fluoroscopic exam table. The lower lumbar region was prep ped and draped in sterile fashion. 1% lidocaine was utilized for skin anesthesia. Utilizing fluoroscopic guidance, a 20-gauge spinal needle was advanced into the intrathecal space at the L3-4 disc space level. Permanent spot images were obtained. Approximately 10 mL of clear CSF flui d was removed and sent to lab for analysis. The needle was removed and Band-Aid applied. The patient tolerated the procedure well. Vital signs be monitored on the floor. Total fluoroscopy time 7 seconds. Study dose 4.52 mGy. IMPRESSION: Lumbar puncture as above. Performed, dictated, and signed by Fritz Hester PA-C; to be co-signed by Dr. Jacques Iverson. Electronically signed by: Jacques Iverson M.D. 10/18/2023 4:44 PM
[2023-10-18 15:02] LABS: Cryptococcus neoformans/ga PCR Not Detected (NotDetected); Cytomegalovirus PCR Not Detected (NotDetected); Enterovirus PCR Not Detected (NotDetected); Escherichia coli K1 PCR Not Detected (NotDetected); Haemophilius influenzae PCR Not Detected (NotDetected); Herpes Simplex Virus 1 PCR Not Detected (NotDetected); Herpes Simplex Virus 2 PCR Not Detected (NotDetected); Human Herpes Virus 6 PCR Not Detected (NotDetected); Human Parechovirus PCR Not Detected (NotDetected); Listeria monocytogenes PCR Not Detected (NotDetected); Neisseria meningitidis PCR Not Detected (NotDetected); Streptococcus agalactiae PCR Not Detected (NotDetected); Streptococcus pneumoniae PCR Not Detected (NotDetected); Varicella Zoster Virus PCR Not Detected (NotDetected)
--- NOTE | 2023-10-18 15:05 | Hospitalist Progress Note ---
Date of Service October 18, 2023 Assessment & Plan (1) Sepsis due to urinary tract infection: Plan: Patient presented what appears to be septic shock due to gram-negative urinary tract infection. Septic shock has resolved. Blood pressure is stabilized. WBCs normalized. Continue IV antibiotics, Urine culture grew E. coli which is pansensitive-will continue current intravenous antibiotic Remove Hernández catheter, voiding trial to evaluate for ongoing issues with retention Continue activities Clinically better denies any urinary symptoms (2) Rapidly progressive weakness: Plan: Patient has had progressive weakness and physical decline over the past 8 months to the point where he spending a lot of his time in bed. Appreciate neurology input and recommendation MRI of the brain showed diffuse white matter changes LP was done on 10/10/2023 showed mildly elevated total protein and other significant investigations are pending Repeat cervical scan MRI report is pending Remains clinically weak Will get PT and OT evaluation (3) Moderate protein malnutrition: (4) Septic shock: (5) Acute metabolic encephalopathy: (6) Electrolyte abnormality: (7) Iron deficiency anemia: (8) Bleeding hemorrhoids: Plan Progress note from prior hospitalist is as below: Patient presented what appears to be septic shock due to gram-negative urinary tract infection. Septic shock has resolved. Blood pressure is stabilized. WBCs normalized. Continue IV antibiotics, await sensitivities Remove Hernández catheter, voiding trial to evaluate for ongoing issues with retention Continue activities Follow-up pending laboratory studies Patient has had progressive weakness and physical decline over the past 8 months to the point where he spending a lot of his time in bed. Imaging and laboratory studies unrevealing at this time. Will consult neurology to further evaluate for possible neuromuscular disorder, anticipate will need ongoing outpatient follow-up Continue oral iron supplementation Continue oral B12 supplementation Continue therapies Anticipate possible discharge as soon as tomorrow if continue to improve and able to be converted to oral antibiotics. Admission and Anticipated Discharge Date Admission Date: October 16, 2023 Subjective 10/18/2023 The patient was seen and examined in the medical floor He has been complaining of some headachebifrontal without any associated neurological symptoms Denies any other significant symptoms He will be given Ativan for anxiety before MRI Review of Systems Review of Systems: All systems reviewed and are unremarkable except as noted below Physical Exam Physical Exam: Sitting at the edge of the bed without any acute distress Constitutional: + ill appearing and average body habitus Eyes: PERRL, conjunctivae normal, anicteric sclerae ENMT: external ear and nose normal, oropharynx normal Neck: trachea midline, no thyromegaly Respiratory: no respiratory distress Auscultation: lungs clear to auscultation bilaterally Cardiovascular: Rate/Rhythm: regular rate and regular rhythm; not tachycardic Heart Sounds: normal S1 and normal S2; no murmur Extremities: no edema Gastrointestinal (Abdomen): Inspection/Auscultation: normal bowel sounds; abdomen not distended Percussion/Palpation: abdomen soft; abdomen nontender Musculoskeletal: No acute arthritis of the joint Neurologic: normal touch/pain/proprioception and moves all extremities; no focal motor deficits Lymphatic: no cervical or axillary lymphadenopathy Results & Data Results & Data Vital Signs (Past 12 Hours) Vital Signs Temp Pulse Resp BP Pulse Ox O2 Del Method 10/18/23 07:24 36.6 C 53 L 18 108/70 98 Room Air Laboratory Results Short CBC 10/18/23 Range/Units 06:36 WBC 5.44 (4.8-10.8) K/ul Hgb 11.0 L (14.0-18.0) g/dl Hct 32.4 L (42.0-52.0) % Plt Count 153 (130-400) K/uL BMP 10/18/23 06:36 Sodium 139 Potassium 4.5 Chloride 108 H Carbon Dioxide 26 BUN 12 Creatinine 0.85 Glucose 89 Calcium 8.6 Medications Administered Current Inpatient Medications Acetaminophen (Acetaminophen 325 Mg Tab) 650 mg PO QID PRN PRN Reason: pain/fever Stop: 11/15/23 02:18 Last Admin: 10/18/23 13:40 Dose: 650 mg Cyanocobalamin (Cyanocobalamin (B-12) 500 Mcg Tablet) 500 mcg PO QAM COUNTS INCLUDE 234 BEDS AT THE [facility] Stop: 11/15/23 12:59 Last Admin: 10/18/23 07:38 Dose: 500 mcg Ferrous Sulfate (Ferrous Sulfate 325 Mg Tab) 325 mg PO BIDM COUNTS INCLUDE 234 BEDS AT THE [facility] Stop: 11/15/23 16:59 Last Admin: 10/18/23 07:38 Dose: 325 mg Promethazine HCl (Phenergan) 6.25 mg in 50.25 mls @ 201 mls/hr IV Q6H PRN PRN Reason: Nausea And Vomiting Stop: 11/15/23 02:18 Cefepime HCl 2,000 mg/ Syringe 20 mls @ 5 mls/min IV Q8H JEREL; Protocol Stop: 10/26/23 09:59 Last Admin: 10/18/23 09:36 Dose: 5 mls/min
--- NOTE | 2023-10-18 16:10 | Magnetic Resonance Report ---
MRI OF THE CERVICAL SPINE WITHOUT CONTRAST CLINICAL HISTORY: Progressive weakness, physical decline. COMPARISON: None. TECHNIQUE: Utilizing a 1.5 Lora magnet and dedicated coil, multiplanar, multiecho imaging of the ce rvical spine was performed without IV contrast. FINDINGS: Alignment of the cervical spine is anatomic. Vertebral body heights are maintained. Discogenic change s at the C6-C7 level are present. There are no cervical spine fractures. This exam is mildly compromi sed by artifact although is diagnostic. Cervical cord signal and caliber are normal. There is no intr acanalicular mass or fluid collection. Paravertebral soft tissues are unremarkable. C2-C3: The central canal and neural foramen are patent. C3-C4: The central canal and neural foramen are patent. C4-C5: The central canal and neural foramen are patent. C5-C6: Minimal disc bulge. The central canal and neural foramen are patent. C6-C7: There is moderate disc space narrowing. Discogenic changes are present. The central canal and neural foramen are patent. C7-T1: The central canal and neural foramen are patent. IMPRESSION: 1. No cervical cord signal abnormality. Exam mildly compromised by motion artifact. 2. Mild degenerative changes within the cervical spine. No central canal or neural foraminal stenosis . ACT 112: Negative or not required by law. Electronically signed by: Curt Almonte M.D. 10/18/2023 4:08 PM
[2023-10-18] MEDS: OLANZapine 5 MG TABLET PO SCH (20:13)
[2023-10-19] MEDS: GADOBUTROL 10ML VIAL IV ONE (00:19)
--- NOTE | 2023-10-19 04:01 | Magnetic Resonance Report ---
Exam(s): MRI HEAD W/WO Contrast IV Amt: 7.5cc gadavist EXAM: MR Head Without and With Intravenous Contrast CLINICAL HISTORY: Progressive weakness. TECHNIQUE: Magnetic resonance images of the head/brain without and with intravenous contrast in multiple planes. CONTRAST: Patient received 7.5cc Gadavist of IV contrast COMPARISON: CT Brain 10-15-2023. FINDINGS: Brain: Age-appropriate central and peripheral atrophy. No evidence for an acute stroke. Moderate confluent ill-defined supratentorial periventricular and subcortical white matter hyperintensities on FLAIR and T2-weighted images. No mass lesion. No abnormal parenchymal or leptomeningeal enhancement postcontrast. No acute hemorrhage or abnormal extra-axial fluid collection. Ventricles: No midline shift. No ventriculomegaly. Bones/joints: Unremarkable. No acute fracture. Sinuses: Unremarkable as visualized. No acute sinusitis. Mastoid air cells: Unremarkable as visualized. No mastoid effusion. Orbits: Unremarkable as visualized. IMPRESSION: 1. No acute stroke or hemorrhage. 2. Nonspecific white matter changes most commonly seen with small vessel disease. Electronically signed by: Paddy Maldonado M.D. 10/19/23 02:12 AM
[2023-10-19 07:11] LABS: Hematocrit (blood only) 33.2 % (42.0-52.0); Hemoglobin 11.1 g/dl (14.0-18.0); Mean Corpuscular Hemoglobin 32.9 pg (25.0-34.0); Mean Corpuscular Hgb Conc 33.4 g/dL (32.0-36.0); Mean Corpuscular Volume 98.5 fL (80.0-100.0); Mean Platelet Volume 10.2 fL (9.4-12.4); Platelet Count 156 K/uL (130-400); RDW Standard Deviation 43.8 fL (36.4-46.3); Red Blood Count 3.37 M/uL (4.70-6.10); White Blood Count 3.99 K/ul (4.8-10.8)
[2023-10-19 07:42] LABS: Albumin Globulin Ratio 0.5 (0.9-2); Albumin Level 2.7 gm/dl (3.4-5.0); BUN Creatinine Ratio 14.4 (10-20); Bilirubin,Total 0.2 mg/dl (0.2-1.0); Calcium 8.3 mg/dl (8.6-10.3); Creatinine Clr Calc Pharmacy 116.5 ml/min; Est GFR (African American) 120.8 ml/min; Est GFR (Non-African American) 104.2 ml/min; Potassium 3.7 mmol/L (3.5-5.1); Total Protein 7.7 gm/dl (6.0-8.3)
[2023-10-19 08:02] LABS: Basophils # (auto) 0.03 K/uL (0.00-0.20); Basophils % (auto) 0.8 %; Eosinophils % (auto) 7.5 %; Immature Granulocytes # (auto) 0.02 K/uL (0.01-0.20); Immature Granulocytes % (auto) 0.5 %; Lymphocytes # (auto) 0.81 K/uL (1.20-3.40); Lymphocytes % (auto) 20.3 %; Monocytes # (auto) 0.29 K/uL (0.11-0.59); Monocytes % (auto) 7.3 %; Neutrophils # (auto) 2.54 K/uL (1.40-6.50); Neutrophils % (auto) 63.6 %
[2023-10-19 10:09] LABS: Ehrlichia chaff DNA Bld Negative (Negative)
[2023-10-19 12:17] LABS: HIV-1 RNA Log Copies/mL 5.67 (NOT DETECTED)
--- NOTE | 2023-10-19 13:24 | Infectious Disease Consult ---
Date of Service October 19, 2023 Telehealth Information I performed this visit using a real-time telehealth connection between my location and the patients location ([facility]). After connecting through interactive tele-video, patient was identified by name and date of and/or wristband check.Patient (or authorized healthcare personnel representative) was informed that this was a telemedicine visit and it was being conducted confidentially over secure lines. My office door was closed and no o ne else was present in the room with me.Patient (or authorized healthcare personnel representative) provided consent to proceed with the visit, expressed an understanding of privacy and security of the telemedicine visit, and gave permission to have a hospital personnel representative in the room in order to assist with the visit and to conduct portions of the visit, as needed. I informed the patient (or authorized healthcare personnel representative) that I reviewed their record and presented the opportunity for them to ask any questions regarding the visit today. The patient agreed to participate. Assessment & Plan (1) Cognitive changes: Plan: LP not indicative of bacterial meningitis (2) Acute UTI: Plan: Can de-escalate to ceftriaxone (3) HIV (human immunodeficiency virus infection): Plan: Recommend ruling out opportunistic neuro-infection and consider rapid starting Biktarvy if no concern for neuro-infections.If his CD4 is < 200 recommend starting bactrim 1DS PO daily Plan Recommend de-escalating to ceftriaxone and following up his LP results .Obtain toxoplasma IgM and IgG in the CSF and fungal studies .Once any CNA HHA opportunistic infection has been ruled out would recommend starting Biktarvy (if not on ART) and obtaining Genotype to determine if he has any mutations.Obtain CD4 ,syphilis screen,hepatitis panel and check his urine for chlamydia and gonorrhea .Thank you for allowing us to participate in the care of this patient ID will continue to follow .Patient needs close follow up with ID please schedule an appointment with ID on discharge [phone] History of Present Illness History of Present Illness 43 y/o M presented to the emergency department via EMS and accompanied by his father and a family friend for evaluation of altered mental status.He was found to be febrile and incoherent with inability to ambulate. The patient's symptoms occur in the setting of unclear functional decline over the past year where his father reports that he used to live in [place] independently and had a job at a [employer] but due to his decline moved back home to live with his father last November where he has a pattern where he will sleep and lay in bed all day only periodically getting up to use the bathroom, bathe himself or eat. The patient's father correlates this functional decline to his 's (patient's mother) the year prior. Father reports that he is insisted to the patient that he see a doctor but had declined regularly and so therefore since moving back home in November has not seen a primary care doctor. His father reports that he has had imbalance and recurrent falls throughout this time. His father reports that he found the patient outside today after he had not returned from a walk and found him to be confused unable to speak and unable to walk steadily. Patient's father reports that he was getting up frequently last night to urinate. There is no report of any cough or congestion. The patient is a poor historian and unable to provide significant details of his recent symptoms or history. The patient and father deny any history of alcohol or substance abuse. On arrival to the Emergency Department patient is ill-appearing, febrile to 38.4, tachycardic in the 120s initially normotensive however then developed hypotension in the 80s/40s improving with IV fluid hydration. The patient appears clinically dry. He has dry/cracked mucous membranes. He appears cachectic. He moves all extremities equally with generalized weakness without focal deficits. Reflexes within normal limits. There is no clonus. Negative Kernig's and Brudzinski's sign and the patient reports that this movement provides some relief. WBC 11.1 K with neutrophil predominance but no left shift, nonspecific. Significant lymphopenia is present at 0.27K. H/H without prior for comparison with MCV of 97. Chemistry without metabolic acidosis. Creatinine is normal. Potassium is 3.4, phosphorus 1.4 and magnesium 1.3 with repletion initiated. LFTs are unremarkable. Has to troponin is 5.5, within normal limits. Albumin is low at 2.9 consistent with suspicion for protein calorie malnutrition in the setting of the patient's functional decline over the past year. Procalcitonin is 3.4 consistent with bacterial infection and sepsis. Respiratory BioFire was performed and was negative. Anaplasma and Babesia smear were negative with DNA testing pending. Lyme screen is negative.He is currently on cefepime and urine cultures have grown narvaez sensitive E Coli ,CSF findings not concerning for a bacterial infection .He was evaluated by neurology who recommended a HIV test and His HIV VL [id number] Allergies Allergy/AdvReac Type Severity Reaction Status Date / Time No Known Allergies Allergy Unverified 10/16/23 00:27 Home Medications Medication Instructions Recorded Confirmed Type Elderberry Gummy 2 tabs PO DAILY 10/16/23 10/16/23 History acetaminophen 500 mg tablet 1,000 mg PO Q6H PRN Fever Or Pain 10/16/23 10/16/23 History (Tylenol Extra Strength) milk thistle 150 mg capsule 0 mg PO DAILY 10/16/23 10/16/23 History Patient History Social History Smoking Status: Current every day smoker Hx Alcohol Use: No Hx Substance Use: No Preferred Language: Mosotho Communication Ability: Effective Final Inspector Paper Required: No Beliefs That Will Affect Care: None Current Living Situation: Family Other Information That Helps Us Care for You: No Feels Safe at Home: Yes Safety Concerns: Feels Safe At This Time Assistive Devices: Cane, Hospital Bed and Walker Review of Systems Fatigue and weakness Physical Exam Patient awake alert no respiratory distress Results & Data Vital Signs (Past 12 Hours) Vital Signs Temp Pulse Resp BP Pulse Ox O2 Del Method 10/19/23 02:00 36.5 C 62 14 107/71 98 Room Air Laboratory Results E coli RX M.I.C. --- --------- Amox/Clav S <=8/4 Ampicillin S <=8 Amp/Sul S <=8/4 Cefazolin S <=2 Cefepime S <=2 Ceftriaxone S <=1 Ciprofloxacin S <=0.25 Ertapenem S <=0.5 Gentamicin S <=4 Levofloxacin S <=0.5 Meropenem S <=1 Nitrofurantoin S <=32 Tobramycin S <=4 Trimeth/Sulfa S <=2/38 Pip/Tazo S <=16 Diagnostic Findings FINDINGS: Brain: Age-appropriate central and peripheral atrophy. No evidence for an acute stroke. Moderate confluent ill-defined supratentorial periventricular and subcortical white matter hyperintensities on FLAIR and T2-weighted images. No mass lesion. No abnormal parenchymal or leptomeningeal enhancement postcontrast. No acute hemorrhage or abnormal extra-axial fluid collection. Ventricles: No midline shift. No ventriculomegaly. Bones/joints: Unremarkable. No acute fracture. Sinuses: Unremarkable as visualized. No acute sinusitis. Mastoid air cells: Unremarkable as visualized. No mastoid effusion. Orbits: Unremarkable as visualized. IMPRESSION: 1. No acute stroke or hemorrhage. 2. Nonspecific white matter changes most commonly seen with small vessel disease.
--- NOTE | 2023-10-19 17:12 | Hospitalist Progress Note ---
Date of Service October 19, 2023 Assessment & Plan (1) Sepsis due to urinary tract infection: Plan: Patient presented what appears to be septic shock due to gram-negative urinary tract infection. Septic shock has resolved. Blood pressure is stabilized. WBCs normalized. Continue IV antibiotics, Urine culture grew E. 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 Appreciate neurology input and recommendation MRI of the brain showed diffuse white matter changes LP was done on 10/10/2023 showed mildly elevated total protein and other significant investigations are pending Repeat cervical scan MRI report is pending Remains clinically weak Will get PT and OT evaluation (5) Moderate protein malnutrition: (6) Septic shock: (7) Acute metabolic encephalopathy: (8) Electrolyte abnormality: (9) Iron deficiency anemia: (10) Bleeding hemorrhoids: (11) Cognitive changes: Plan Progress note from prior hospitalist is as below: Patient presented what appears to be septic shock due to gram-negative urinary tract infection. Septic shock has resolved. Blood pressure is stabilized. WBCs normalized. Continue IV antibiotics, await sensitivities Remove Hernández catheter, voiding trial to evaluate for ongoing issues with retention Continue activities Follow-up pending laboratory studies Patient has had progressive weakness and physical decline over the past 8 months to the point where he spending a lot of his time in bed. Imaging and laboratory studies unrevealing at this time. Will consult neurology to further evaluate for possible neuromuscular disorder, anticipate will need ongoing outpatient follow-up Continue oral iron supplementation Continue oral B12 supplementation Continue therapies Anticipate possible discharge as soon as tomorrow if continue to improve and able to be converted to oral antibiotics. Admission and Anticipated Discharge Date Admission Date: October 16, 2023 Subjective 10/18/2023 The patient was seen and examined in the medical floor He has been complaining of some headachebifrontal without any associated neurological symptoms Denies any other significant symptoms He will be given Ativan for anxiety before MRI 10/19/2023 The patient was seen and examined in medical floor He remains weak and lethargic and complains of nonspecific symptoms of shoulder pain and occasional headache Noted to have HIV positive with very high viral counts Review of Systems Review of Systems: All systems reviewed and are unremarkable except as noted below Physical Exam Physical Exam: Sitting at the edge of the bed without any acute distress Constitutional: + ill appearing and average body habitus Eyes: PERRL, conjunctivae normal, anicteric sclerae ENMT: external ear and nose normal, oropharynx normal Neck: trachea midline, no thyromegaly Respiratory: no respiratory distress Auscultation: lungs clear to auscultation bilaterally Cardiovascular: Rate/Rhythm: regular rate and regular rhythm; not tachycardic Heart Sounds: normal S1 and normal S2; no murmur Extremities: no edema Gastrointestinal (Abdomen): Inspection/Auscultation: normal bowel sounds; abdomen not distended Percussion/Palpation: abdomen soft; abdomen nontender Neurologic: normal touch/pain/proprioception and moves all extremities; no focal motor deficits Lymphatic: no cervical or axillary lymphadenopathy Results & Data Results & Data Vital Signs (Past 12 Hours) Vital Signs Temp Pulse Resp BP Pulse Ox O2 Del Method 10/19/23 16:09 36.5 C 60 18 108/68 99 Room Air Laboratory Results Short CBC 10/19/23 Range/Units 06:30 WBC 3.99 L (4.8-10.8) K/ul Hgb 11.1 L (14.0-18.0) g/dl Hct 33.2 L (42.0-52.0) % Plt Count 156 (130-400) K/uL BMP 10/19/23 06:30 Sodium 140 Potassium 3.7 Chloride 111 H Carbon Dioxide 23 BUN 13 Creatinine 0.90 Glucose 114 H Calcium 8.3 L Liver Function 10/19/23 Range/Units 06:30 Total Bilirubin 0.2 (0.2-1.0) mg/dl AST 23 (13-39) U/L ALT 31 (7-52) U/L Alkaline Phosphatase 43 (34-104) U/L Albumin 2.7 L (3.4-5.0) gm/dl Medications Administered Current Inpatient Medications Acetaminophen (Acetaminophen 325 Mg Tab) 650 mg PO QID PRN PRN Reason: pain/fever Stop: 11/15/23 02:18 Last Admin: 10/19/23 14:19 Dose: 650 mg Cyanocobalamin (Cyanocobalamin (B-12) 500 Mcg Tablet) 500 mcg PO QAM [facility] Stop: 11/15/23 12:59 Last Admin: 10/19/23 09:01 Dose: 500 mcg Ferrous Sulfate (Ferrous Sulfate 325 Mg Tab) 325 mg PO BIDM [facility] Stop: 11/15/23 16:59 Last Admin: 10/19/23 09:01 Dose: 325 mg Promethazine HCl (Phenergan) 6.25 mg in 50.25 mls @ 201 mls/hr IV Q6H PRN PRN Reason: Nausea And Vomiting Stop: 11/15/23 02:18 Cefepime HCl 2,000 mg/ Syringe 20 mls @ 5 mls/min IV Q8H [facility]; Protocol Stop: 10/26/23 09:59 Last Admin: 10/19/23 10:37 Dose: 5 mls/min Olanzapine (Olanzapine 5 Mg Tablet) 5 mg PO HS [facility] Stop: 11/17/23 20:59 Last Admin: 10/18/23 20:13 Dose: 5 mg
[2023-10-19] MEDS: cefTRIAXone SODIUM 2,000 MG/50 ML BAG IV SCH (18:46)
--- NOTE | 2023-10-19 18:57 | Communication Note ---
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 Infectious disease consultation is recommended, and she consider initiating antiretroviral therapy. CSF studies reviewed, WBCs 1, protein 53.7, glucose 51
[2023-10-19] MEDS: KETOROLAC TROMETHAMINE 15 MG/ML VIAL IV PRN (20:27)
[2023-10-20 00:08] LABS: Babesia microti DNA Not Detected (Not Detected)
[2023-10-20 09:35] LABS: Hep C Ab Rflx HepCQuant RNA Negative (Negative)
[2023-10-20 09:37] LABS: Hep B Surface Ag with confirm Negative (Negative)
[2023-10-20 12:03] LABS: Chlam trach RNA(Genit,Ureth,Ur Not Detected (NotDetected); GC(Neis gon)RNA(Genit,Ureth,Ur Not Detected (NotDetected)
--- NOTE | 2023-10-20 15:24 | Hospitalist Progress Note ---
Date of Service October 20, 2023 Assessment & Plan (1) Sepsis due to urinary tract infection: Plan: Patient presented what appears to be septic shock due to gram-negative urinary tract infection. Septic shock has resolved. Blood pressure is stabilized. WBCs normalized. Continue IV antibiotics, Urine culture grew E. 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 TECHNICIAN infection before restarting any medications for HIV as advised by the infectious disease specialist Patient is aware about the diagnosis Toxoplasma serology and CSF, fungal culture and CSF are pending CD4 count is pending Cognitive changes Reviewed neurology note Likely secondary to HIV and cephalitis Advised to restart antiretroviral as soon as possible Awaiting further infectious workup in LP before restarting any antiretroviral treatment (3) Progressive multifocal leukoencephalopathy: Plan: The cognitive impairment is likely secondary to progressive multifocal leukoencephalopathy Will continue PT and OT for ongoing weakness as below (4) Rapidly progressive weakness: Plan: Patient has had progressive weakness and physical decline over the past 8 months to the point where he spending a lot of his time in bed. Appreciate neurology input and recommendation MRI of the brain showed diffuse white matter changes LP was done on 10/10/2023 showed mildly elevated total protein and other significant investigations are pending Repeat cervical scan MRI report is pending Remains clinically weak Will get PT and OT evaluation- recommended to go to rehab but the patient is willing to go home Will ask to continue PT and OT while in the hospital (5) Moderate protein malnutrition: (6) Septic shock: (7) Acute metabolic encephalopathy: (8) Electrolyte abnormality: (9) Iron deficiency anemia: (10) Bleeding hemorrhoids: (11) Cognitive changes: Plan Progress note from prior hospitalist is as below: Patient presented what appears to be septic shock due to gram-negative urinary tract infection. Septic shock has resolved. Blood pressure is stabilized. WBCs normalized. Continue IV antibiotics, await sensitivities Remove Hernández catheter, voiding trial to evaluate for ongoing issues with retention Continue activities Follow-up pending laboratory studies Patient has had progressive weakness and physical decline over the past 8 months to the point where he spending a lot of his time in bed. Imaging and laboratory studies unrevealing at this time. Will consult neurology to further evaluate for possible neuromuscular disorder, anticipate will need ongoing outpatient follow-up Continue oral iron supplementation Continue oral B12 supplementation Continue therapies Anticipate possible discharge as soon as tomorrow if continue to improve and able to be converted to oral antibiotics. Admission and Anticipated Discharge Date Admission Date: October 16, 2023 Subjective 10/18/2023 The patient was seen and examined in the medical floor He has been complaining of some headachebifrontal without any associated neurological symptoms Denies any other significant symptoms He will be given Ativan for anxiety before MRI 10/19/2023 The patient was seen and examined in medical floor He remains weak and lethargic and complains of nonspecific symptoms of shoulder pain and occasional headache Noted to have HIV positive with very high viral counts 10/20/2023 The patient was seen and examined in medical floor He has been stable with continuing mild headache and unsteady gait Denies any fever and or chills and no new symptoms Review of Systems Review of Systems: All systems reviewed and are unremarkable except as noted below Physical Exam Physical Exam: Sitting at the edge of the bed without any acute distress Constitutional: + ill appearing and average body habitus Eyes: PERRL, conjunctivae normal, anicteric sclerae ENMT: external ear and nose normal, oropharynx normal Neck: trachea midline, no thyromegaly Respiratory: no respiratory distress Auscultation: lungs clear to auscultation bilaterally Cardiovascular: Rate/Rhythm: regular rate and regular rhythm; not tachycardic Heart Sounds: normal S1 and normal S2; no murmur Extremities: no edema Gastrointestinal (Abdomen): Inspection/Auscultation: normal bowel sounds; abdomen not distended Percussion/Palpation: abdomen soft; abdomen nontender Neurologic: normal touch/pain/proprioception and moves all extremities; no focal motor deficits Lymphatic: no cervical or axillary lymphadenopathy Results & Data Results & Data Vital Signs (Past 12 Hours) Vital Signs Temp Pulse Resp BP Pulse Ox O2 Del Method 10/20/23 14:21 36.4 C L 62 18 109/71 98 Room Air 10/20/23 08:02 36.6 C 63 18 120/81 98 Room Air Medications Administered Current Inpatient Medications Acetaminophen (Acetaminophen 325 Mg Tab) 650 mg PO QID PRN PRN Reason: pain/fever Stop: 11/15/23 02:18 Last Admin: 10/20/23 12:46 Dose: 650 mg Cyanocobalamin (Cyanocobalamin (B-12) 500 Mcg Tablet) 500 mcg PO QAM [facility] Stop: 11/15/23 12:59 Last Admin: 10/20/23 08:39 Dose: 500 mcg Ferrous Sulfate (Ferrous Sulfate 325 Mg Tab) 325 mg PO BIDM [facility] Stop: 11/15/23 16:59 Last Admin: 10/20/23 08:39 Dose: 325 mg Promethazine HCl (Phenergan) 6.25 mg in 50.25 mls @ 201 mls/hr IV Q6H PRN PRN Reason: Nausea And Vomiting Stop: 11/15/23 02:18 Ceftriaxone Sodium (Rocephin) 2,000 mg in 50 mls @ 100 mls/hr IV Q24H [facility] Stop: 10/29/23 17:29 Last Infusion: 10/19/23 19:26 Dose: Infused Ketorolac Tromethamine (Ketorolac Tromethamine 15 Mg/Ml Vial) 15 mg IV Q6H PRN PRN Reason: Pain Stop: 10/24/23 18:07 Last Admin: 10/19/23 20:27 Dose: 15 mg Olanzapine (Olanzapine 5 Mg Tablet) 5 mg PO HS [facility] Stop: 11/17/23 20:59 Last Admin: 10/19/23 20:27 Dose: 5 mg
[2023-10-20 19:21] VITALS: O2SAT 99
[2023-10-21 07:35] VITALS: BP 116/80; PULSE 100; RESP 18; TEMP 98.2
--- NOTE | 2023-10-21 12:35 | Hospitalist Progress Note ---
Date of Service October 21, 2023 Assessment & Plan (1) Sepsis due to urinary tract infection: Plan: Patient presented what appears to be septic shock due to gram-negative urinary tract infection. Septic shock has resolved. Blood pressure is stabilized. WBCs normalized. Continue IV antibiotics, Urine culture grew E. coli which is pansensitive-will continue current intravenous antibiotic Remove Hernández catheter, voiding trial to evaluate for ongoing issues with retention Continue activities Clinically better denies any urinary symptoms Antibiotic will be changed to intravenous ceftriaxone to finish the course Denies any more urinary symptoms, fever and/or chills Will change antibiotic to oral cefdinir 300 mg twice daily and continue for the next 5 days to finish a course of 10 days in total (2) HIV (human immunodeficiency virus infection): Plan: Noted to have very high viral load with HIV1 With progressive multifocal leukoencephalopathy Appreciate infectious disease input and recommendation Will rule out any MOTOR MAN infection before restarting any medications for HIV as advised by the infectious disease specialist Patient is aware about the diagnosis Toxoplasma serology and CSF, fungal culture and CSF are pending CD4 count is pending Await results of test for MOTOR MAN infection before starting any definitive antiretroviral treatment preferably with Biktarvy as an outpatient as soon as possible Will need to take Bactrim DS 1 tablet daily if CD4 count comes back less than 200 This was explained to the patient's prior to discharge He will need to have an appointment with infectious disease as soon as possible following discharge from the hospital Cognitive changes Reviewed neurology note Likely secondary to HIV and cephalitis Advised to restart antiretroviral as soon as possible Awaiting further infectious workup in LP before restarting any antiretroviral treatment Cognitive impairment remains stable (3) Progressive multifocal leukoencephalopathy: Plan: The cognitive impairment is likely secondary to progressive multifocal leukoencephalopathy Will continue PT and OT for ongoing weakness as below Advised to take extreme precaution to avoid fall (4) Rapidly progressive weakness: Plan: Patient has had progressive weakness and physical decline over the past 8 months to the point where he spending a lot of his time in bed. Appreciate neurology input and recommendation MRI of the brain showed diffuse white matter changes LP was done on 10/10/2023 showed mildly elevated total protein and other significant investigations are pending Repeat cervical scan MRI report is pending Remains clinically weak Will get PT and OT evaluation- recommended to go to rehab but the patient is willing to go home Will ask to continue PT and OT while in the hospital PT recommended home with instructions during ambulation (5) Moderate protein malnutrition: (6) Septic shock: (7) Acute metabolic encephalopathy: (8) Electrolyte abnormality: (9) Iron deficiency anemia: (10) Bleeding hemorrhoids: (11) Cognitive changes: Plan Progress note from prior hospitalist is as below: Patient presented what appears to be septic shock due to gram-negative urinary tract infection. Septic shock has resolved. Blood pressure is stabilized. WBCs normalized. Continue IV antibiotics, await sensitivities Remove Hernández catheter, voiding trial to evaluate for ongoing issues with retention Continue activities Follow-up pending laboratory studies Patient has had progressive weakness and physical decline over the past 8 months to the point where he spending a lot of his time in bed. Imaging and laboratory studies unrevealing at this time. Will consult neurology to further evaluate for possible neuromuscular disorder, anticipate will need ongoing outpatient follow-up Continue oral iron supplementation Continue oral B12 supplementation Continue therapies Anticipate possible discharge as soon as tomorrow if continue to improve and able to be converted to oral antibiotics. Admission and Anticipated Discharge Date Admission Date: October 16, 2023 Subjective 10/18/2023 The patient was seen and examined in the medical floor He has been complaining of some headachebifrontal without any associated neurological symptoms Denies any other significant symptoms He will be given Ativan for anxiety before MRI 10/19/2023 The patient was seen and examined in medical floor He remains weak and lethargic and complains of nonspecific symptoms of shoulder pain and occasional headache Noted to have HIV positive with very high viral counts 10/20/2023 The patient was seen and examined in medical floor He has been stable with continuing mild headache and unsteady gait Denies any fever and or chills and no new symptoms 10/21/2023 The patient was seen and examined in medical floor He has been feeling much better but remains dizzy with ambulation Denies any fever and or chills Definitely he wants to go home today Repeat physical therapy recommended home with recommendation to ambulation Review of Systems Review of Systems: All systems reviewed and are unremarkable except as noted below Physical Exam Physical Exam: Sitting at the edge of the bed without any acute distress Constitutional: + ill appearing and average body habitus Eyes: PERRL, conjunctivae normal, anicteric sclerae ENMT: external ear and nose normal, oropharynx normal Neck: trachea midline, no thyromegaly Respiratory: no respiratory distress Auscultation: lungs clear to auscultation bilaterally Cardiovascular: Rate/Rhythm: regular rate and regular rhythm; not tachycardic Heart Sounds: normal S1 and normal S2; no murmur Extremities: no edema Gastrointestinal (Abdomen): Inspection/Auscultation: normal bowel sounds; abdomen not distended Percussion/Palpation: abdomen soft; abdomen nontender Neurologic: normal touch/pain/proprioception and moves all extremities; no focal motor deficits Lymphatic: no cervical or axillary lymphadenopathy Results & Data Results & Data Vital Signs (Past 12 Hours) Vital Signs Temp Pulse Resp BP Pulse Ox O2 Del Method 10/21/23 07:30 Room Air 10/21/23 07:30 36.8 C 100 H 18 116/80 99 Room Air Medications Administered Current Inpatient Medications Acetaminophen (Acetaminophen 325 Mg Tab) 650 mg PO QID PRN PRN Reason: pain/fever Stop: 11/15/23 02:18 Last Admin: 10/21/23 08:10 Dose: 650 mg Cyanocobalamin (Cyanocobalamin (B-12) 500 Mcg Tablet) 500 mcg PO QAM [facility] Stop: 11/15/23 12:59 Last Admin: 10/21/23 08:09 Dose: 500 mcg Ferrous Sulfate (Ferrous Sulfate 325 Mg Tab) 325 mg PO BIDM [facility] Stop: 11/15/23 16:59 Last Admin: 10/21/23 08:09 Dose: 325 mg Promethazine HCl (Phenergan) 6.25 mg in 50.25 mls @ 201 mls/hr IV Q6H PRN PRN Reason: Nausea And Vomiting Stop: 11/15/23 02:18 Ceftriaxone Sodium (Rocephin) 2,000 mg in 50 mls @ 100 mls/hr IV Q24H [facility] Stop: 10/29/23 17:29 Last Infusion: 10/20/23 18:00 Dose: Infused Ketorolac Tromethamine (Ketorolac Tromethamine 15 Mg/Ml Vial) 15 mg IV Q6H PRN PRN Reason: Pain Stop: 10/24/23 18:07 Last Admin: 10/20/23 19:59 Dose: 15 mg Olanzapine (Olanzapine 5 Mg Tablet) 5 mg PO HS [facility] Stop: 11/17/23 20:59 Last Admin: 10/20/23 20:00 Dose: 5 mg
[2023-10-21 13:51] LABS: Hepatitis A Antibody IgM NON-REACTIVE (NON-REACTIVE); Hepatitis B Core Antibody IgM NON-REACTIVE (NON-REACTIVE)
--- NOTE | 2023-10-22 09:35 | Discharge Summary ---
Date of Service October 22, 2023 Admission HPI Per Admitting Provider History obtained from patient, family, and records. History somewhat limited from patient secondary to confusion. Medical history significant for ongoing tobacco abuse. Patient moved back to [place] to reside with father from [place], [place] last December 2022 because of ambulation issues. Refused to seek consultation for walking issues as per father. Patient had a fall at home last week without head trauma. No unusual pain as per patient. No syncope. Patient noted to be increasingly weak and confused the last 3 days as per father. No EtOH intake as per father. Increased urinary frequency. Episodic hemorrhoidal bleed. Denies headache, cough, SOB symptoms. Transient chest pain from discomfort. Patient denies abdominal pain. Denies black/bloody stools. Patient not eating as much. Patient brought to ER for evaluation. Lowest SBP of 80s documented at the ER. IV ceftriaxone and doxycycline administered at the ER. 600 cc urine obtained post Hernández catheter insertion. Medical History as above Surgical History : None Family History : Heart disease Personal/Social history : 2 cigarettes a day, occasional EtOH intake, currently unemployed Admission Exam Per Admitting Provider Physical Exam: GENERAL: Oriented to place, slightly uncomfortable, no respiratory distress SKIN: Pallor, warm HEENT: Pale palpebral conjunctivae, no ptosis, dry buccal mucosa, poor dentition NECK : Supple, no tenderness CHEST : CTA, no tenderness HEART : RRR, no obvious murmurs ABDOMEN: Some distention, nontender EXTREMITIES : No LE swelling/tenderness, no other conspicuous deformities noted NEUROLOGIC : Oriented to place, no facial asymmetry, gait and stance not assessed Principal Diagnosis Sepsis due to E. coli urinary tract infection, human immunodeficiency virus infection, rapidly progressive weakness Discharge Exam Sitting at the edge of the bed without any acute distress Constitutional + ill appearing and average body habitus Eyes PERRL, conjunctivae normal, anicteric sclerae ENMT external ear and nose normal, oropharynx normal Neck trachea midline, no thyromegaly Respiratory no respiratory distress Auscultation: lungs clear to auscultation bilaterally Cardiovascular Rate/Rhythm: regular rate and regular rhythm; not tachycardic Heart Sounds: normal S1 and normal S2; no murmur Extremities: no edema Gastrointestinal (Abdomen) Inspection/Auscultation: normal bowel sounds; abdomen not distended Percussion/Palpation: abdomen soft; abdomen nontender Neurologic normal touch/pain/proprioception and moves all extremities; no focal motor deficits Lymphatic no cervical or axillary lymphadenopathy Discharge Data Allergies Allergy/AdvReac Type Severity Reaction Status Date / Time No Known Allergies Allergy Unverified 10/16/23 00:27 Consultations 10/16/23 01:06 ED Decision to Admit Stat 10/17/23 10:29 Consult Neurology Routine 10/19/23 08:26 Consult Infectious Diseases Routine Ordered Studies 10/15/23 22:25 CT abd pelvis IV con only Stat CT angio chest PE protocol Stat CT head venogram w con Stat CT head/brain wo con Stat 10/15/23 22:30 CT face [CT facial bones w con] Stat 10/17/23 10:59 MR brain wo con Routine MR cervical spine wo con Routine 10/18/23 09:30 IR lumbar puncture diagnostic Routine 10/18/23 15:08 MR brain MS wo/w con Routine Hospital Course (1) Sepsis due to urinary tract infection: Patient presented what appears to be septic shock due to gram-negative urinary tract infection. Septic shock has resolved. Blood pressure is stabilized. WBCs normalized. Continue IV antibiotics, Urine culture grew E. coli which is pansensitive-will continue current intravenous antibiotic Remove Hernández catheter, voiding trial to evaluate for ongoing issues with retent ion Continue activities Clinically better denies any urinary symptoms Antibiotic will be changed to intravenous ceftriaxone to finish the course Denies any more urinary symptoms, fever and/or chills Will change antibiotic to oral cefdinir 300 mg twice daily and continue for the next 5 days to finish a course of 10 days in total (2) HIV (human immunodeficiency virus infection): Noted to have very high viral load with HIV1 With progressive multifocal leukoencephalopathy Appreciate infectious disease input and recommendation Will rule out any BUSINESS AFFAIRS MANAGER infection before restarting any medications for HIV as advised by the infectious disease specialist Patient is aware about the diagnosis Toxoplasma serology and CSF, fungal culture and CSF are pending CD4 count is pending Await results of test for BUSINESS AFFAIRS MANAGER infection before starting any definitive antiretroviral treatment preferably with Biktarvy as an outpatient as soon as possible Will need to take Bactrim DS 1 tablet daily if CD4 count comes back less than 200 This was explained to the patient's prior to discharge He will need to have an appointment with infectious disease as soon as possible following discharge from the hospital Cognitive changes Reviewed neurology note Likely secondary to HIV and cephalitis Advised to restart antiretroviral as soon as possible Awaiting further infectious workup in LP before restarting any antiretroviral treatment Cognitive impairment remains stable (3) Progressive multifocal leukoencephalopathy: The cognitive impairment is likely secondary to progressive multifocal leukoencephalopathy Will continue PT and OT for ongoing weakness as below Advised to take extreme precaution to avoid fall (4) Rapidly progressive weakness: Patient has had progressive weakness and physical decline over the past 8 months to the point where he spending a lot of his time in bed. Appreciate neurology input and recommendation MRI of the brain showed diffuse white matter changes LP was done on 10/10/2023 showed mildly elevated total protein and other significant investigations are pending Repeat cervical scan MRI report is pending Remains clinically weak Will get PT and OT evaluation- recommended to go to rehab but the patient is willing to go home Will ask to continue PT and OT while in the hospital PT recommended home with instructions during ambulation (5) Moderate protein malnutrition: (6) Septic shock: (7) Acute metabolic encephalopathy: (8) Electrolyte abnormality: (9) Iron deficiency anemia: (10) Bleeding hemorrhoids: (11) Cognitive changes: Plan Progress note from prior hospitalist is as below: Patient presented what appears to be septic shock due to gram-negative urinary tract infection. Septic shock has resolved. Blood pressure is stabilized. WBCs normalized. Continue IV antibiotics, await sensitivities Remove Hernández catheter, voiding trial to evaluate for ongoing issues with retention Continue activities Follow-up pending laboratory studies Patient has had progressive weakness and physical decline over the past 8 months to the point where he spending a lot of his time in bed. Imaging and laboratory studies unrevealing at this time. Will consult neurology to further evaluate for possible neuromuscular disorder, anticipate will need ongoing outpatient follow-up Continue oral iron supplementation Continue oral B12 supplementation Continue therapies Anticipate possible discharge as soon as tomorrow if continue to improve and able to be converted to oral antibiotics. Total Time Total Time Spent Total Time Spent (In Minutes): 45 minutes Discharge Plan Discharge Items Patient Disposition: Home - Self-Care Reason For Visit: HYPOTENSION, SEPSIS Discharge Diagnosis: Sepsis due to E. coli urinary tract infection, human immunodeficiency virus infection, rapidly progressive weakness Condition on Discharge: Fair Activity: Resume your previous activity Activity Comment: Take extreme precautions to avoid falls Non-emergency contact: Primary Care Provider Call non-emergency contact if: you have any medication questions and your symptoms worsen Follow-up/Referrals: Pierre Spain MD [Primary Care Provider] - Diet: Regular Addtl Attending Provider Instructions: Please take extreme precautions to avoid falls Finish the course of antibiotic Your doctor's office will give you a call with an appointment within 7 days Pending Studies at Discharge: Yes Studies:: BUSINESS AFFAIRS MANAGER infectious workup Stand-Alone Forms: My [facility], Smoking Cessation Medications and DC Order Prescriptions: New olanzapine 5 mg Tablet 5 mg PO HS Qty: 3 0RF cyanocobalamin (vitamin B-12) 500 mcg Tablet 500 mcg PO QAM Qty: 30 0RF ferrous sulfate 325 mg (65 mg iron) Tablet,Delayed Release (Dr/Ec) 325 mg PO BIDM Qty: 60 0RF cefdinir 300 mg capsule 300 mg PO BID 5 Days Qty: 10 0RF Continued acetaminophen [Tylenol Extra Strength] 500 mg Tablet 1,000 mg PO Q6H PRN (Reason: Fever Or Pain) milk thistle 150 mg Capsule 0 mg PO DAILY Rx Instructions: give with meal/snack Elderberry Gummy 2 tabs PO DAILY Discharge Orders: Discharge Order (Routine); Ordered 10/21/23 Ordered By: Shayy Noyola/Other Patient Handouts: Understanding HIV and AIDS Admission Data Admit Date/Time: 10/16/23 01:51 Attending Provider: Shayy Kenyon Admit Provider: Feliberto Aggarwal Primary Care Provider: Pierre Spain Other Providers: Feliberto Aggarwal; Juliano Banda; Umer Gallagher Carlos M.; Tyler Tsai; Joseph Brennan I.; Alexander Wallace II; Rebecca Nagel; J Luis Gallagher; Marvin Coronado; Justin De La Fuente Other Interventions: Discharge Summary Assessment (RN) Last Done: 10/21/23 12:52
[2023-10-22 19:27] LABS: LSP % Cells Analyzed CD4 9 % (30-61); LSP Absolute Ct CD4 55 cells/uL (490-1740); LSP Lymphocytes Absolute 639 cells/uL (850-3900)
[2023-10-26 22:17] LABS: CSF, LDH 12 U/L (<=25); Lyme DNA PCR CSF or Synovial Not Detected (Not Detected); Lyme DNA Source CSF; Lyme IgG Band Pattern CSF DNR; Lyme IgG CSF NO BANDS DETECTED; Lyme IgM Band Pattern CSF DNR; Lyme IgM CSF NO BANDS DETECTED; VDRL Qualitative CSF Nonreactive (Nonreactive); West Nile Virus, PCR Source CSF; West Nile Virus, PCR, CSF NOT DETECTED (NOT DETECTED)
[2023-10-27 01:52] LABS: Toxoplasma gondii IgG Ab, EIA <7.20 IU/mL; Toxoplasma gondii IgM Ab, EIA <8.00 AU/mL
== END 2023-10-21 13:15 | disposition home or self-care (01) | DRG 974 ==
LOC: ED 20:37 → SUATTDRO 10-16 01:51 → EDINP 10-16 01:51 → 3N 10-16 02:05